=== PATIENT | female | born 1965 | race Caucasian/White ===

== ENCOUNTER → 2016-05-18 | Outpatient (CLI) | payer OTHER ==
--- NOTE | 2016-05-18 16:48 | CR ---
EXAMINATION: Pelvis and right hip HISTORY: Pain COMPARISON: None TECHNIQUE: AP pelvis and 2 views of the right hip FINDINGS: Bone mineralization appears normal. The SI joints are symmetric. There is a lucency throug h the superior margin of the left acetabular rim, possibly disrupted osteophyte. The hip joint space s otherwise appear normal. The iliopectineal lines are intact. IMPRESSION: 1. Grossly unremarkable right hip.
== END ==
LOC: MW.CHORTHO 14:06
PROVIDERS: ATTEND Orthopaedic Surgery
DX: M25.551 Pain in right hip (principal)
CPT/HCPCS: 73502-26-RT; 73502-RT

== ENCOUNTER 2017-06-25 07:26 | Inpatient (IN) | payer OTHER ==
[~2017-06-25 07:26] MED LIST: Acetaminophen 1,000 MG in Premix Bag 1 BAG IV SCH; Famotidine 20 MG/2 ML SDV IVPUSH SCH; Ketorolac 30 MG/ML SDV IVPUSH SCH; Lidocaine 2% 5 ML SDV ONE; Midazolam 1 MG/ML 2 ML SDV ONE; Propofol 200 MG/20 ML SDV ONE; Scopolamine 1.5 MG Transdermal Patch TRDERM SCH; Sodium Chloride 0.9% 20 ML ONE; ceFAZolin 1 GM Vial ONE; fentaNYL 100 MCG/2 ML SDV ONE; oxyCODONE ER 20 MG TAB.ER PO SCH
--- NOTE | 2017-06-25 07:49 | PCM.PREANE ---
Preanesthetic Assessment - Anesthesia/Transfusion/Family Hx Anesthesia History: Prior Anesthesia Without Reaction Family History of Anesthesia Reaction: No Transfusion History: No Prior Transfusion(s) - Review of Systems General: No Symptoms Pulmonary: No Symptoms Cardiovascular: No Symptoms Gastrointestinal: No Symptoms Neurological: No Symptoms Other: Reports: Anxiety - Physical Assessment NPO Status Date: 06/24/17 Height: 1.83 m Weight: 110.223 kg ASA Class: 2 Mental Status: Alert & Oriented x3 Airway Class: Mallampati = 2 Dentition: Reports: Normal Dentition ROM/Head Extension: Full Lungs: Clear to Auscultation, Normal Respiratory Effort Cardiovascular: Regular Rate, Regular Rhythm - Allergies Allergies/Adverse Reactions: Allergies Allergy/AdvReac Type Severity Reaction Status Date / Time No Known Allergies Allergy Verified 06/20/17 14:15 - Acknowledgements Anesthesia Type Planned: Spinal Pt an Appropriate Candidate for the Planned Anesthesia: Yes Alternatives and Risks of Anesthesia Discussed w Pt/Guardian: Yes Pt/Guardian Understands and Agrees with Anesthesia Plan: Yes PreAnesthesia Questionnaire HEENT History: Reports: Allergic Rhinitis Cardiovascular History: Reports: Hypertension Respiratory History: Reports: None Gastrointestinal History: Reports: GERD, Other (See Below) Genitourinary History: Reports: None [employer]ION History: Reports: Musculoskeletal History: Reports: Arthritis Psychiatric History: Reports: Anxiety, Depression Endocrine/Metabolic History: Reports: Obesity/BMI 30+ - Infectious Disease History Infectious Disease History: Reports: Chicken Pox, Mumps - Past Surgical History Head Surgeries/Procedures: Reports: None HEENT Surgical History: Reports: Tonsillectomy Female Surgical History: Reports: Tubal Ligation Musculoskeletal Surgical History: Reports: Arthroscopic Knee - SUBSTANCE USE Smoking Status *Q: Current Every Day Smoker Tobacco Use Within Last Twelve Months: Cigarettes Days Per Week of Alcohol Use: 2 Number of Drinks Per Day: 2 Total Drinks Per Week: 4 Recreational Drug Use History: No Recreational Drug Type: Reports: Marijuana/Hashish Recreational Drug Last Use: 30 years - HOME MEDS Home Medications: Home Meds Escitalopram Oxalate 20 mg PO DAILY 02/10/16 [History] Furosemide 20 mg PO DAILY PRN 02/10/16 [History] Ibuprofen 4 tab PO ASDIRECTED PRN 02/10/16 [History] Acetaminophen [Tylenol] 2 tab PO ASDIRECTED PRN 06/20/17 [History] Famotidine [Pepcid] 1 tab PO ASDIRECTED 06/20/17 [History] - CURRENT (IN HOUSE) MEDS Current Meds: Current Medications Famotidine (Pepcid) 40 mg IVPUSH ONARRIVE GABRIELLA Acetaminophen 1,000 mg/ Premix 100 mls @ 400 mls/hr IV ONARRIVE GABRIELLA Cefazolin Sodium/Dextrose 2 gm (/ Premix) 50 mls @ 100 mls/hr IV ONCALL GABRIELLA Ropivacaine 49.25 ml/Ketorolac Tromethamine 30 mg/Epinephrine HCl 0.5 mg/ Clonidine HCl 80 mcg/ Sodium Chloride 100 mls @ 50 mls/sec INJECT ASDIRECTED GABRIELLA Lactated Ringer's (Ringers, Lactated) 1,000 mls @ 100 mls/hr IV ASDIRECTED GABRIELLA Tranexamic Acid 4,000 mg/ (Sodium Chloride) 140 mls @ 600 mls/hr IV ASDIRECTED GABRIELLA Ketorolac Tromethamine (Toradol) 30 mg IVPUSH ONARRIVE GABRIELLA Oxycodone HCl (Oxycontin) 20 mg PO ONARRIVE GABRIELLA Scopolamine (Transderm-Scop) 1.5 mg TRDERM ONARRIVE GABRIELLA Discontinued Medications Cefazolin Sodium (Ancef) Confirm Administered Dose 2 gm .ROUTE .STK-MED ONE Stop: 06/25/17 07:00 Fentanyl (Sublimaze) Confirm Administered Dose 100 mcg .ROUTE .STK-MED ONE Stop: 06/25/17 07:00 Sodium Chloride (Normal Saline) Confirm Administered Dose 20 mls @ as directed .ROUTE .STK-MED ONE Stop: 06/25/17 07:00 Lidocaine (Xylocaine-Mpf 2%) Confirm Administered Dose 5 ml .ROUTE .STK-MED ONE Stop: 06/25/17 07:00 Midazolam HCl (Versed 1 Mg/Ml) Confirm Administered Dose 2 mg .ROUTE .STK-MED ONE Stop: 06/25/17 07:00 Propofol (Diprivan 20 Ml) Confirm Administered Dose 600 mg .ROUTE .STK-MED ONE Stop: 06/25/17 07:00 Tranexamic Acid (Cyklokapron) Confirm Administered Dose 3,000 mg .ROUTE .STK- MED ONE Stop: 06/25/17 07:26 Tranexamic Acid (Cyklokapron) Confirm Administered Dose 1,000 mg .ROUTE .STK- MED ONE Stop: 06/25/17 07:26
[2017-06-25] MEDS ORDERED: ceFAZolin 2 GM in Premix Bag 1 BAG IV SCH (08:00)
[2017-06-25] MEDS ORDERED: Tranexamic Acid 4,000 MG in Sodium Chloride 0.9% 100 ML IV SCH (08:00)
[2017-06-25] MEDS ORDERED: Ropivacaine 49.25 ML, Ketorolac 30 MG, EPINEPHrine 0.5 MG, cloNIDine 80 MCG in Sodium C... INJECT SCH (08:00)
[2017-06-25] MEDS: Lactated Ringers 1,000 ML IV SCH ×2 (08:09→22:13)
[2017-06-25] MEDS ORDERED: Glycopyrrolate 0.2 MG/ML SDV ONE ×2 (08:55→09:08)
[2017-06-25] MEDS ORDERED: fentaNYL 100 MCG/2 ML SDV IVPUSH PRN (09:24)
[2017-06-25] MEDS ORDERED: ePHEDrine 50 MG/ML SDV ONE (09:25)
[2017-06-25] MEDS ORDERED: Propofol 200 MG/20 ML SDV ONE (09:57)
--- NOTE | 2017-06-25 10:28 | PCM.OPNOTE ---
- General Post-Op/Procedure Note Date of Surgery/Procedure: 06/25/17 Operative Procedure(s): R TKA Post-Op Diagnosis: DJD R knee Anesthesia Technique: Moderate Sedation, Spinal Primary Surgeon: Eri Dubose Client Application Support Specialist: Sheela Perez in mLs: 50 Condition: Good Free Text/Narrative:: tt=44 min #[id number]
[2017-06-25] MEDS ORDERED: Aluminum Hydroxide/Magnesium Hydroxide/Simethicone Susp 30 ML Cup PO PRN (10:32)
[2017-06-25] MEDS ORDERED: diphenhydrAMINE 25 MG Cap PO PRN (10:32)
[2017-06-25] MEDS ORDERED: Bisacodyl 10 MG Supp RECTAL PRN (10:32)
[2017-06-25] MEDS ORDERED: Furosemide 20 MG Tab PO PRN (10:35)
[2017-06-25] MEDS ORDERED: Morphine PF 30 MG/30 ML PCA Vial IV SCH (10:45)
--- NOTE | 2017-06-25 11:29 | PCM.POSTAN ---
POST ANESTHESIA ASSESSMENT - MENTAL STATUS Mental Status: Alert, Oriented - RESPIRATORY Respiratory Status: Respiratory Rate WNL, Airway Patent, O2 Saturation Stable - CARDIOVASCULAR CV Status: Pulse Rate WNL, Blood Pressure Stable - GASTROINTESTINAL GI Status: No Symptoms - POST OP HYDRATION Hydration Status: Adequate & Stable
--- NOTE | 2017-06-25 11:29 | OR ---
SURGEON: Eri Dubose MD DATE OF PROCEDURE: 06/25/2017 PREOPERATIVE DIAGNOSIS: Degenerative joint disease, right knee, tricompartmental. POSTOPERATIVE DIAGNOSIS: Degenerative joint disease, right knee, tricompartmental. PROCEDURES: Right total knee arthroplasty using patient specific instrumentation. SALES CONTRACTOR: Sheela Perez PA-C ANESTHESIA: Spinal with sedation. ESTIMATED BLOOD LOSS: 50 mL. TOURNIQUET TIME: 44 minutes. COMPLICATIONS: None. DVT PROPHYLAXIS: PAS boot and LEIGH hose to the nonoperative leg. IMPLANTS USED: Maureen Persona femoral component size 8 standard (LPS), tibial component size F, 11 mm all-polyethylene articular surface, and 38 mm all-polyethylene patella. INTRAOPERATIVE FINDINGS: Showed severe tricompartmental degenerative changes with grade 4 chondromalacia in all compartments. No significant synovitis was noted. BRIEF HISTORY: Celeste is a 51-year-old female, who has had complaint of progressive bilateral knee pain, right greater than left. She had failed conservative treatment. Due to her lack of response to conservative treatment, I did recommend that she undergo surgical intervention. The risks and goals of the procedure were discussed with the patient and were documented preoperatively. She agreed to proceed. DESCRIPTION OF PROCEDURE: The patient was properly identified and brought to the operating room. The patient was then transferred from the operating room cart and placed on the operating table in a supine position. Anesthesia was administered by the anesthesia staff. After adequate anesthesia was obtained, a well-padded tourniquet was applied to the surgical lower extremity. Solis catheter was placed. The lower extremity was then prepped in a standard fashion using ChloraPrep solution. It was then sterilely draped. A time-out was performed to ensure correct site and procedure. Preoperative antibiotics were given along with one gram of tranexamic acid IV. The surgical site had been marked preoperatively. An Esmarch was used to exsanguinate the right lower extremity and the tourniquet was inflated. An incision was made over the anterior aspect of the knee. The subcutaneous tissues were dissected down to the level of the fascia. A medial parapatellar approach to the knee was made. A portion of the infrapatellar fat pad was then excised. The distal femur was then exposed. The femoral patient-specific cutting guide was then placed. Pins were also placed. The distal femoral cutting block was placed and the distal femoral cut was made. Instrumentation was then removed. Both Whitesides' line and the epicondylar axis were then marked with electrocautery. The 4-in-1 cutting block was placed. This was placed in a slightly externally rotated position, which corresponded well with the previously drawn lines. The cutting guide was then pinned into position. An Irving wing guide was used to check the depth of resection of our anterior condylar cut and it was felt that no notching would occur. The anterior condylar cut was then made followed by the posterior condylar cut. Both the posterior chamfer and anterior chamfer cuts were then made. The cutting block was then removed along with the excess bony remnants. We then turned our attention to the tibia. The anterior cruciate ligament and posterior cruciate ligament were released and a posterior cruciate ligament retractor was placed to allow the tibia to be pulled anteriorly. The tibial patient-specific guide was then placed on the proximal tibia. This fit anatomically. The pins were then placed. The proximal tibia cutting guide was then placed and screwed into position. The proximal tibial resection was then made with care being taken to protect the patellar tendon. The bony resection was then removed. The remainder of the medial and lateral meniscus were then excised. Care was taken to protect the popliteus tendon. The tibia was then sized to the appropriate size. The distal femur was then elevated. The posterior capsule was stripped off the distal femur both medially and laterally. The posterior capsule along with the medial and lateral gutters were then injected with a standard mixture consisting of clonidine, epinephrine, Toradol, and Ropivacaine, unless any allergies were found preoperatively. The femoral component was then placed onto the distal femur in a slightly lateral position. This fit the femur well. A box cut was then made without difficulty. This was then removed. The tibial trial along with the polyethylene liner was then placed. The knee came easily into full extension and was stable to varus and valgus stressing both in full extension and flexion. Any additional releases were performed at this time. We then returned our attention to the patella. The patella was everted and towel clamps were used to hold the patella in position. It was resected to a 15 millimeter thickness. It was then sized to the appropriate size. It was prepared in the usual fashion after placing the predetermined size clamps. This was placed in a slightly superior and medial position. The clamp was then removed. The patellar trial button was placed. The knee was taken through a range of motion using the no-touch technique. The patella tracked centrally. A drop shiva was then placed to check alignment. All instruments were then removed from the knee. The tibial sizer was then placed on the tibia. The tibia was prepared in the usual fashion using the reamer and broach. This was then removed. All bony surfaces were copiously irrigated with Pulsavac solution. They were then suctioned dry. Cement was prepared on the back table in the usual manner. Once it was prepared, the bone ends were again suctioned dry. The tibia was cemented into place first. This was malleted into position. Excess cement was then cleared. The femur was then placed in a similar manner. We placed the polyethylene trial into place and the knee was brought into full extension. An axial load was placed while keeping the knee in full extension. The patella button was also cemented into position and the clamp was used to hold this in place as the cement was allowed to cure. The wound was again copiously irrigated with saline solution using a Pulsavac director corporate communications. Following this 1 g of tranexamic acid was applied to the wound topically. After we had adequate curing of the cement, the knee was again taken through a range of motion. The size of the polyethylene was then determined. The polyethylene trial was then removed. The tibial tray was suctioned to make sure there was no remaining soft tissue or cement. Excess cement was cleared from around the edges of the prosthesis as well. The tourniquet was then deflated. We were able to observe for any excess bleeding and none was noted. Electrocautery was used to maintain hemostasis. An additional gram of tranexamic acid was given IV. The retractors were again placed and the predetermined polyethylene was then placed. This was locked into position without difficulty. The knee was again taken through a range of motion with no change from the prior exam. The fascial layer was closed with Number One Vicryl. The subcutaneous tissues were closed with 2-0 Vicryl. The skin was closed with hayes. Xeroform gauze was placed over the wound and a bulky dressing was applied. The patient was then awakened from anesthesia and transferred back to the operating room cart. They were brought to the recovery room in stable condition. All needle and sponge counts were correct. BENNY / JAY /[id number]
[2017-06-25] MEDS: Ondansetron 4 MG/2 ML SDV IV PRN ×2 (11:31→22:17)
[2017-06-25] MEDS: oxyCODONE 5 MG Tab PO PRN ×2 (13:08→18:05)
[2017-06-25] MEDS: Acetaminophen 1,000 MG in Premix Bag 1 BAG IV SCH ×2 (13:58→20:05)
[2017-06-25] MEDS: Ketorolac 30 MG/ML SDV IVPUSH SCH ×2 (15:06→22:21)
[2017-06-25] MEDS: ceFAZolin 2 GM in Premix Bag 1 BAG IV SCH (15:07)
--- NOTE | 2017-06-25 15:52 | CR ---
EXAMINATION: Right knee HISTORY: TKA COMPARISON: 05/30/2017 TECHNIQUE: AP and lateral views FINDINGS/IMPRESSION: Right total knee hardware is demonstrated in good position and alignment. Postop erative soft tissue changes noted.
[2017-06-25] MEDS: Docusate Sodium 100 MG Cap PO SCH (20:04)
[2017-06-25] MEDS ORDERED: oxyCODONE ER 20 MG TAB.ER PO SCH (21:00)
[2017-06-26] MEDS: ceFAZolin 2 GM in Premix Bag 1 BAG IV SCH (00:31)
[2017-06-26] MEDS: oxyCODONE 5 MG Tab PO PRN ×3 (00:37→07:54)
[2017-06-26] MEDS: Acetaminophen 1,000 MG in Premix Bag 1 BAG IV SCH (01:22)
[2017-06-26] MEDS: Ondansetron 4 MG/2 ML SDV IV PRN ×2 (04:41→12:14)
[2017-06-26] MEDS: Ketorolac 30 MG/ML SDV IVPUSH SCH (04:45)
--- NOTE | 2017-06-26 07:32 | PCM48HPAN ---
Post Anesthesia Note - EVALUATION WITHIN 48HRS OF ANESTHETIC Vital Signs in Normal Range: Yes Patient Participated in Evaluation: Yes Respiratory Function Stable: Yes Airway Patent: Yes Hydration Status Stable: Yes Pain Control Satisfactory: Yes Nausea and Vomiting Control Satisfactory: No (Patietn reports mild persistent nausea. Medication given) Mental Status Recovered: Yes Resp Rate: 16
--- NOTE | 2017-06-26 08:00 | PCM.SURGPN ---
<PreethieronLisetSheela R - Last Filed: 06/26/17 07:54> - General Info Date of Service: 06/26/17 Date of Surgery/Procedure: 06/25/17 POD#: 1 - Review of Systems Gastrointestinal: Reports: Nausea, Vomiting Musculoskeletal: Reports: Leg Pain Systems Review Comment:: pt up to chair for breakfast c/o nausea/vomiting, has not eaten much post-op states she previously hasn't tolerated narcotics well trying clear liquids now pain ok, has some pain has been OOB ambulating with FWW - Patient Data Vitals - Most Recent: Last Vital Signs Temp 97.9 F 06/26/17 03:00 Pulse 70 06/26/17 03:00 Resp 16 06/26/17 07:32 BP 105/67 06/26/17 03:00 Pulse Ox 99 06/26/17 03:00 Weight - Most Recent: 110.223 kg I&O - Last 24 Hours: Intake & Output 06/25/17 06/26/17 06/26/17 22:59 06:59 14:59 Intake Total 1599 750 Output Total 451 2300 Balance 1148 -1550 Lab Results Last 24 Hrs: Laboratory Results - last 24 hr 06/25/17 06/26/17 Range/Units 08:03 06:14 Hgb 10.8 L (12.0-16.0) g/dL Hct 33.3 L (36.0-46.0) % Blood Type O POSITIVE Antibody Screen NEGATIVE Med Orders - Current: Current Medications Al Hydroxide/Mg Hydroxide (Mag-Al Plus) 30 ml PO Q4H PRN PRN Reason: indigestion Last Admin: 06/26/17 01:20 Dose: 30 ml Aspirin (Aspirin) 325 mg PO BID [facility] Bisacodyl (Dulcolax) 10 mg RECTAL DAILY PRN PRN Reason: Constipation Celecoxib (Celebrex) 200 mg PO BID [facility] Diphenhydramine HCl (Benadryl) 25 - 50 mg PO Q6H PRN PRN Reason: Itching Docusate Sodium (Colace) 100 mg PO BID [facility] Last Admin: 06/25/17 20:04 Dose: 100 mg Escitalopram Oxalate (Lexapro) 20 mg PO DAILY [facility] Famotidine (Pepcid) 40 mg IVPUSH ONARRIVE [facility] Last Admin: 06/25/17 07:58 Dose: 40 mg Famotidine (Pepcid) 40 mg PO DAILY [facility] Fentanyl (Sublimaze) 50 mcg IVPUSH Q5M PRN PRN Reason: Pain (severe 7-10) Stop: 06/26/17 09:25 Furosemide (Lasix) 20 mg PO DAILY PRN PRN Reason: Edema Acetaminophen 1,000 mg/ Premix 100 mls @ 400 mls/hr IV ONARRIVE [facility] Last Admin: 06/25/17 07:59 Dose: 400 mls/hr Cefazolin Sodium/Dextrose 2 gm (/ Premix) 50 mls @ 100 mls/hr IV ONCALL [facility] Ropivacaine 49.25 ml/Ketorolac Tromethamine 30 mg/Epinephrine HCl 0.5 mg/ Clonidine HCl 80 mcg/ Sodium Chloride 100 mls @ 50 mls/sec INJECT ASDIRECTED [facility] Lactated Ringer's (Ringers, Lactated) 1,000 mls @ 100 mls/hr IV ASDIRECTED [facility] Last Admin: 06/25/17 22:13 Dose: 100 mls/hr Tranexamic Acid 4,000 mg/ (Sodium Chloride) 140 mls @ 600 mls/hr IV ASDIRECTED [facility] Ketorolac Tromethamine (Toradol) 30 mg IVPUSH ONARRIVE [facility] Last Admin: 06/25/17 07:58 Dose: 30 mg Morphine Sulfate (Morphine Larry Operator 30 Mg In 30 Ml) 30 mg IV ASDIRECTED [facility]; Protocol Stop: 06/26/17 08:00 Last Admin: 06/25/17 10:48 Dose: 30 mg Morphine Sulfate (Morphine) 1 - 3 mg IVPUSH Q3H PRN PRN Reason: Pain Ondansetron HCl (Zofran) 4 mg IV Q6HR PRN PRN Reason: NAUSEA/VOMITING Last Admin: 06/26/17 04:41 Dose: 4 mg Oxycodone HCl (Oxycontin) 20 mg PO ONARRIVE [facility] Last Admin: 06/25/17 07:57 Dose: 20 mg Oxycodone HCl (Oxycodone) 5 - 10 mg PO Q4H PRN PRN Reason: Pain Stop: 06/26/17 08:00 Last Admin: 06/26/17 00:40 Dose: 5 mg Oxycodone HCl (Oxycontin) 20 mg PO Q12HR [facility] Last Admin: 06/25/17 20:27 Dose: 20 mg Oxycodone/Acetaminophen (Percocet 325-5 Mg) 1 - 2 tab PO Q4H PRN PRN Reason: Pain Scopolamine (Transderm-Scop) 1.5 mg TRDERM ONARRIVE [facility] Last Admin: 06/25/17 07:58 Dose: 1.5 mg Discontinued Medications Cefazolin Sodium (Ancef) Confirm Administered Dose 2 gm .ROUTE .STK-MED ONE Stop: 06/25/17 07:00 Ephedrine Sulfate (Ephedrine Sulfate) Confirm Administered Dose 50 mg .ROUTE .STK-MED ONE Stop: 06/25/17 09:26 Fentanyl (Sublimaze) Confirm Administered Dose 100 mcg .ROUTE .STK-MED ONE Stop: 06/25/17 07:00 Glycopyrrolate (Robinul) Confirm Administered Dose 0.2 mg .ROUTE .STK-MED ONE Stop: 06/25/17 08:56 Glycopyrrolate (Robinul) Confirm Administered Dose 0.2 mg .ROUTE .STK-MED ONE Stop: 06/25/17 09:09 Sodium Chloride (Normal Saline) Confirm Administered Dose 20 mls @ as directed .ROUTE .STK-MED ONE Stop: 06/25/17 07:00 Acetaminophen 1,000 mg/ Premix 100 mls @ 400 mls/hr IV Q6H [facility] Stop: 06/26/17 02:14 Last Infusion: 06/26/17 01:37 Dose: Infused Cefazolin Sodium/Dextrose 2 gm (/ Premix) 50 mls @ 100 mls/hr IV Q8H [facility] Stop: 06/26/17 00:29 Last Infusion: 06/26/17 01:05 Dose: Infused Ketorolac Tromethamine (Toradol) 30 mg IVPUSH Q6H [facility] Stop: 06/26/17 05:00 Last Admin: 06/26/17 04:45 Dose: 30 mg Lidocaine (Xylocaine-Mpf 2%) Confirm Administered Dose 5 ml .ROUTE .STK-MED ONE Stop: 06/25/17 07:00 Midazolam HCl (Versed 1 Mg/Ml) Confirm Administered Dose 2 mg .ROUTE .STK-MED ONE Stop: 06/25/17 07:00 Propofol (Diprivan 20 Ml) Confirm Administered Dose 600 mg .ROUTE .STK-MED ONE Stop: 06/25/17 07:00 Propofol (Diprivan 20 Ml) Confirm Administered Dose 200 mg .ROUTE .STK-MED ONE Stop: 06/25/17 09:58 Tranexamic Acid (Cyklokapron) Confirm Administered Dose 3,000 mg .ROUTE .STK- MED ONE Stop: 06/25/17 07:26 Tranexamic Acid (Cyklokapron) Confirm Administered Dose 1,000 mg .ROUTE .STK- MED ONE Stop: 06/25/17 07:26 - Exam Wound/Incisions: Dressing Dry and Intact. No: Drainage, Erythema General: Alert, Oriented Cardiovascular: Regular Rate, Regular Rhythm Extremities: Other (exam RLE - at/ehl/gastroc 5/5, dp 2+, sensation intact distally) Physical Findings Comment:: vss, afeb hgb 10.8 uo 2000+mL - Problem List Review Problem List Initiated/Reviewed/Updated: Yes - My Orders Last 24 Hours: Active Orders 24 hr Category Date Time Status Dressing Change [Wound Care] [RC] Q12H Care 06/25/17 10:31 Active Insert Urinary Catheter [OM.PC] Q24H Care 06/25/17 08:00 Ordered Neurovascular Check [RC] Q2HR Care 06/25/17 10:30 Active Notify Provider Vital Signs [RC] ASDIRECTED Care 06/25/17 10:31 Active RT Incentive Spirometry [RC] ASDIRECTED Care 06/25/17 10:30 Active Vital Signs [RC] Q4H Care 06/25/17 10:30 Active PT Evaluation and Treatment [CONS] Routine Cons 06/25/17 10:30 Active HEMOGLOBIN/HEMATOCRIT,HH [HEME] DAILY Lab 06/27/17 06:00 Ordered HEMOGLOBIN/HEMATOCRIT,HH [HEME] DAILY Lab 06/28/17 06:00 Ordered Acetaminophen/oxyCODONE [Percocet 325-5 MG] Med 06/26/17 08:00 Active 1 - 2 tab PO Q4H PRN Alum Hydrox/Mag Hydrox/Simeth [Mag-Al Plus] Med 06/25/17 10:32 Active 30 ml PO Q4H PRN Aspirin Med 06/26/17 09:00 Active 325 mg PO BID Bisacodyl [Dulcolax] Med 06/25/17 10:32 Active 10 mg RECTAL DAILY PRN Celecoxib [CeleBREX] Med 06/26/17 09:00 Active 200 mg PO BID Docusate Sodium [Colace] Med 06/25/17 21:00 Active 100 mg PO BID Escitalopram [Lexapro] Med 06/26/17 09:00 Active 20 mg PO DAILY Famotidine [Pepcid] Med 06/26/17 09:00 Active 40 mg PO DAILY Furosemide [Lasix] Med 06/25/17 10:35 Active 20 mg PO DAILY PRN Morphine Med 06/26/17 08:00 Active 1 - 3 mg IVPUSH Q3H PRN Morphine PF [Morphine [employer] 30 MG in 30 ML] Med 06/25/17 10:45 Active 30 mg IV ASDIRECTED Ondansetron [Zofran] Med 06/25/17 10:31 Active 4 mg IV Q6HR PRN Ropivacaine [Naropin 0.2%] 49.25 ml Med 06/25/17 08:00 Active Ketorolac [Toradol] 30 mg EPINEPHrine [Adrenalin] 0.5 mg cloNIDine [Duraclon] 80 mcg Sodium Chloride 0.9% [Normal Saline] 48.45 ml INJECT ASDIRECTED Tranexamic Acid [Cyklokapron] 4,000 mg Med 06/25/17 08:00 Active Sodium Chloride 0.9% [Normal Saline] 100 ml IV ASDIRECTED ceFAZolin [Ancef] 2 gm Med 06/25/17 08:00 Active Premix Bag 1 bag IV ONCALL diphenhydrAMINE [Benadryl] Med 06/25/17 10:32 Active 25 - 50 mg PO Q6H PRN fentaNYL [Sublimaze] Med 06/25/17 09:24 Active 50 mcg IVPUSH Q5M PRN oxyCODONE Med 06/25/17 10:32 Active 5 - 10 mg PO Q4H PRN oxyCODONE ER [OxyCONTIN] Med 06/25/17 21:00 Active 20 mg PO Q12HR Ice Therapy [OM.PC] Routine Oth 06/25/17 10:30 Ordered Medication Orders Al Hydroxide/Mg Hydroxide (Mag-Al Plus) 30 ml PO Q4H PRN PRN Reason: indigestion Last Admin: 06/26/17 01:20 Dose: 30 ml Aspirin (Aspirin) 325 mg PO BID [facility] Bisacodyl (Dulcolax) 10 mg RECTAL DAILY PRN PRN Reason: Constipation Celecoxib (Celebrex) 200 mg PO BID [facility] Diphenhydramine HCl (Benadryl) 25 - 50 mg PO Q6H PRN PRN Reason: Itching Docusate Sodium (Colace) 100 mg PO BID [facility] Last Admin: 06/25/17 20:04 Dose: 100 mg Escitalopram Oxalate (Lexapro) 20 mg PO DAILY [facility] Famotidine (Pepcid) 40 mg IVPUSH ONARRIVE [facility] Last Admin: 06/25/17 07:58 Dose: 40 mg Famotidine (Pepcid) 40 mg PO DAILY [facility] Fentanyl (Sublimaze) 50 mcg IVPUSH Q5M PRN PRN Reason: Pain (severe 7-10) Stop: 06/26/17 09:25 Furosemide (Lasix) 20 mg PO DAILY PRN PRN Reason: Edema Acetaminophen 1,000 mg/ Premix 100 mls @ 400 mls/hr IV ONARRIVE [facility] Last Admin: 06/25/17 07:59 Dose: 400 mls/hr Cefazolin Sodium/Dextrose 2 gm (/ Premix) 50 mls @ 100 mls/hr IV ONCALL [facility] Ropivacaine 49.25 ml/Ketorolac Tromethamine 30 mg/Epinephrine HCl 0.5 mg/ Clonidine HCl 80 mcg/ Sodium Chloride 100 mls @ 50 mls/sec INJECT ASDIRECTED [facility] Lactated Ringer's (Ringers, Lactated) 1,000 mls @ 100 mls/hr IV ASDIRECTED [facility] Last Admin: 06/25/17 22:13 Dose: 100 mls/hr Infusion: 06/25/17 18:09 Dose: 100 mls/hr Admin: 06/25/17 08:09 Dose: 100 mls/hr Tranexamic Acid 4,000 mg/ (Sodium Chloride) 140 mls @ 600 mls/hr IV ASDIRECTED [facility] Ketorolac Tromethamine (Toradol) 30 mg IVPUSH ONARRIVE [facility] Last Admin: 06/25/17 07:58 Dose: 30 mg Morphine Sulfate (Morphine Larry Operator 30 Mg In 30 Ml) 30 mg IV ASDIRECTED [facility]; Protocol Stop: 06/26/17 08:00 Last Admin: 06/25/17 10:48 Dose: 30 mg Morphine Sulfate (Morphine) 1 - 3 mg IVPUSH Q3H PRN PRN Reason: Pain Ondansetron HCl (Zofran) 4 mg IV Q6HR PRN PRN Reason: NAUSEA/VOMITING Last Admin: 06/26/17 04:41 Dose: 4 mg Admin: 06/25/17 22:17 Dose: 4 mg Admin: 06/25/17 11:31 Dose: 4 mg Oxycodone HCl (Oxycontin) 20 mg PO ONARRIVE [facility] Last Admin: 06/25/17 07:57 Dose: 20 mg Oxycodone HCl (Oxycodone) 5 - 10 mg PO Q4H PRN PRN Reason: Pain Stop: 06/26/17 08:00 Last Admin: 06/26/17 00:40 Dose: 5 mg Admin: 06/25/17 18:05 Dose: 10 mg Admin: 06/25/17 13:08 Dose: 5 mg Oxycodone HCl (Oxycontin) 20 mg PO Q12HR [facility] Last Admin: 06/25/17 20:27 Dose: 20 mg Oxycodone/Acetaminophen (Percocet 325-5 Mg) 1 - 2 tab PO Q4H PRN PRN Reason: Pain Scopol[facility] Last Admin: 06/25/17 07:58 Dose: 1.5 mg - Assessment Assessment (Free Text/Narrative):: POD#1 R TKA acute posthemorrhagic anemia nausea - Plan Plan (Free Text/Narrative):: DC OxyContin DC [facility] slow LR to 50ml/hr continue IV fluids until nausea/PO intake improves DC [employer] - morphine IV push for breakthrough available DC oxycodone and tylenol - switch to percocet 5/325 PT today ASA 325mg PO BID as DVT prophylaxis if nausea significantly improves, pain is controlled, tolerates PO intake, and does well with PT, may consider d/ch to home this afternoon, but more likely tomorrow d/t nausea and medication management <Eri Dubose R - Last Filed: 06/27/17 08:44> - Patient Data Vitals - Most Recent: Last Vital Signs Temp 99.0 F 06/27/17 04:00 Pulse 68 06/27/17 04:00 Resp 19 06/27/17 04:00 BP 110/64 06/27/17 04:00 Pulse Ox 95 06/27/17 04:00 I&O - Last 24 Hours: Intake & Output 06/26/17 06/27/17 06/27/17 22:59 06:59 14:59 Intake Total 3052 600 Output Total 450 1200 Balance 2602 -600 Lab Results Last 24 Hrs: Laboratory Results - last 24 hr 06/27/17 Range/Units 06:05 Hgb 10.6 L (12.0-16.0) g/dL Hct 33.5 L (36.0-46.0) % Med Orders - Current: Current Medications Hydrocodone Bitart/Acetaminophen ([place] 325-10 Mg) 1 - 2 tab PO Q4H PRN PRN Reason: Pain Last Admin: 06/27/17 06:39 Dose: 2 tab Al Hydroxide/Mg Hydroxide (Mag-Al Plus) 30 ml PO Q4H PRN PRN Reason: indigestion Last Admin: 06/26/17 01:20 Dose: 30 ml Aspirin (Aspirin) 325 mg PO BID [facility] Last Admin: 06/26/17 21:37 Dose: 325 mg Bisacodyl (Dulcolax) 10 mg RECTAL DAILY PRN PRN Reason: Constipation Celecoxib (Celebrex) 200 mg PO BID [facility] Last Admin: 06/26/17 21:37 Dose: 200 mg Diphenhydramine HCl (Benadryl) 25 - 50 mg PO Q6H PRN PRN Reason: Itching Docusate Sodium (Colace) 100 mg PO BID [facility] Last Admin: 06/26/17 21:37 Dose: 100 mg Escitalopram Oxalate (Lexapro) 20 mg PO DAILY [facility] Last Admin: 06/26/17 09:40 Dose: 20 mg Famotidine (Pepcid) 40 mg IVPUSH ONARRIVE [facility] Last Admin: 06/25/17 07:58 Dose: 40 mg Famotidine (Pepcid) 40 mg PO DAILY [facility] Last Admin: 06/26/17 09:43 Dose: 40 mg Furosemide (Lasix) 20 mg PO DAILY PRN PRN Reason: Edema Acetaminophen 1,000 mg/ Premix 100 mls @ 400 mls/hr IV ONARRIVE [facility] Last Admin: 06/25/17 07:59 Dose: 400 mls/hr Cefazolin Sodium/Dextrose 2 gm (/ Premix) 50 mls @ 100 mls/hr IV ONCALL [facility] Ropivacaine 49.25 ml/Ketorolac Tromethamine 30 mg/Epinephrine HCl 0.5 mg/ Clonidine HCl 80 mcg/ Sodium Chloride 100 mls @ 50 mls/sec INJECT ASDIRECTED [facility] Lactated Ringer's (Ringers, Lactated) 1,000 mls @ 50 mls/hr IV ASDIRECTED [facility] Last Admin: 06/26/17 10:04 Dose: 50 mls/hr Tranexamic Acid 4,000 mg/ (Sodium Chloride) 140 mls @ 600 mls/hr IV ASDIRECTED [facility] Ketorolac Tromethamine (Toradol) 30 mg IVPUSH ONARRIVE [facility] Last Admin: 06/25/17 07:58 Dose: 30 mg Morphine Sulfate (Morphine) 1 - 3 mg IVPUSH Q3H PRN PRN Reason: Pain Last Admin: 06/26/17 20:25 Dose: 3 mg Ondansetron HCl (Zofran) 4 mg IV Q6HR PRN PRN Reason: NAUSEA/VOMITING Last Admin: 06/26/17 12:14 Dose: 4 mg Oxycodone HCl (Oxycontin) 20 mg PO ONARRIVE [facility] Last Admin: 06/25/17 07:57 Dose: 20 mg Promethazine HCl (Phenergan) 25 mg IM Q6H PRN PRN Reason: Nausea Last Admin: 06/26/17 16:15 Dose: 25 mg Scopolamine (Transderm-Scop) 1.5 mg TRDERM ONARRIVE [facility] Last Admin: 06/25/17 07:58 Dose: 1.5 mg Discontinued Medications Cefazolin Sodium (Ancef) Confirm Administered Dose 2 gm .ROUTE .STK-MED ONE Stop: 06/25/17 07:00 Ephedrine Sulfate (Ephedrine Sulfate) Confirm Administered Dose 50 mg .ROUTE .STK-MED ONE Stop: 06/25/17 09:26 Fentanyl (Sublimaze) Confirm Administered Dose 100 mcg .ROUTE .STK-MED ONE Stop: 06/25/17 07:00 Fentanyl (Sublimaze) 50 mcg IVPUSH Q5M PRN PRN Reason: Pain (severe 7-10) Stop: 06/26/17 09:25 Glycopyrrolate (Robinul) Confirm Administered Dose 0.2 mg .ROUTE .STK-MED ONE Stop: 06/25/17 08:56 Glycopyrrolate (Robinul) Confirm Administered Dose 0.2 mg .ROUTE .STK-MED ONE Stop: 06/25/17 09:09 Sodium Chloride (Normal Saline) Confirm Administered Dose 20 mls @ as directed .ROUTE .STK-MED ONE Stop: 06/25/17 07:00 Acetaminophen 1,000 mg/ Premix 100 mls @ 400 mls/hr IV Q6H [facility] Stop: 06/26/17 02:14 Last Infusion: 06/26/17 01:37 Dose: Infused Cefazolin Sodium/Dextrose 2 gm (/ Premix) 50 mls @ 100 mls/hr IV Q8H [facility] Stop: 06/26/17 00:29 Last Infusion: 06/26/17 01:05 Dose: Infused Ketorolac Tromethamine (Toradol) 30 mg IVPUSH Q6H [facility] Stop: 06/26/17 05:00 Last Admin: 06/26/17 04:45 Dose: 30 mg Lidocaine (Xylocaine-Mpf 2%) Confirm Administered Dose 5 ml .ROUTE .ST-MED ONE Stop: 06/25/17 07:00 Midazolam HCl (Versed 1 Mg/Ml) Confirm Administered Dose 2 mg .ROUTE .STK-MED ONE Stop: 06/25/17 07:00 Morphine Sulfate (Morphine Larry Operator 30 Mg In 30 Ml) 30 mg IV ASDIRECTED [facility]; Protocol Stop: 06/26/17 08:00 Last Admin: 06/25/17 10:48 Dose: 30 mg Oxycodone HCl (Oxycodone) 5 - 10 mg PO Q4H PRN PRN Reason: Pain Stop: 06/26/17 08:00 Last Admin: 06/26/17 07:54 Dose: 5 mg Oxycodone HCl (Oxycontin) 20 mg PO Q12HR [facility] Last Admin: 06/25/17 20:27 Dose: 20 mg Oxycodone/Acetaminophen (Percocet 325-5 Mg) 1 - 2 tab PO Q4H PRN PRN Reason: Pain Last Admin: 06/26/17 14:02 Dose: 1 tab Propofol (Diprivan 20 Ml) Confirm Administered Dose 600 mg .ROUTE .STK-MED ONE Stop: 06/25/17 07:00 Propofol (Diprivan 20 Ml) Confirm Administered Dose 200 mg .ROUTE .STK-MED ONE Stop: 06/25/17 09:58 Tranexamic Acid (Cyklokapron) Confirm Administered Dose 3,000 mg .ROUTE .STK- MED ONE Stop: 06/25/17 07:26 Tranexamic Acid (Cyklokapron) Confirm Administered Dose 1,000 mg .ROUTE .STK- MED ONE Stop: 06/25/17 07:26 - My Orders Last 24 Hours: Active Orders 24 hr Category Date Time Status Ready for Discharge [RC] PER UNIT ROUTINE Care 06/27/17 08:04 Active Remove [facility] Catheter [Urinary Catheter Removal] [RC] Care 06/26/17 07:57 Active Per Unit Routine HEMOGLOBIN/HEMATOCRIT,HH [HEME] DAILY Lab 06/28/17 06:00 Ordered Acetaminophen/HYDROcodone [[place] 325-10 MG] Med 06/26/17 15:46 Active 1 - 2 tab PO Q4H PRN Aspirin Med 06/26/17 09:00 Active 325 mg PO BID Celecoxib [CeleBREX] Med 06/26/17 09:00 Active 200 mg PO BID Escitalopram [Lexapro] Med 06/26/17 09:00 Active 20 mg PO DAILY Famotidine [Pepcid] Med 06/26/17 09:00 Active 40 mg PO DAILY Morphine Med 06/26/17 08:00 Active 1 - 3 mg IVPUSH Q3H PRN Promethazine [Phenergan] Med 06/26/17 08:00 Active 25 mg IM Q6H PRN Medication Orders Hydrocodone Bitart/Acetaminophen ([place] 325-10 Mg) 1 - 2 tab PO Q4H PRN PRN Reason: Pain Last Admin: 06/27/17 06:39 Dose: 2 tab Admin: 06/27/17 01:34 Dose: 2 tab Admin: 06/26/17 22:04 Dose: 2 tab Admin: 06/26/17 18:14 Dose: 2 tab Al Hydroxide/Mg Hydroxide (Mag-Al Plus) 30 ml PO Q4H PRN PRN Reason: indigestion Last Admin: 06/26/17 01:20 Dose: 30 ml Aspirin (Aspirin) 325 mg PO BID [facility] Last Admin: 06/26/17 21:37 Dose: 325 mg Admin: 06/26/17 09:43 Dose: 325 mg Bisacodyl (Dulcolax) 10 mg RECTAL DAILY PRN PRN Reason: Constipation Celecoxib (Celebrex) 200 mg PO BID [facility] Last Admin: 06/26/17 21:37 Dose: 200 mg Admin: 06/26/17 09:43 Dose: 200 mg Diphenhydramine HCl (Benadryl) 25 - 50 mg PO Q6H PRN PRN Reason: Itching Docusate Sodium (Colace) 100 mg PO BID [facility] Last Admin: 06/26/17 21:37 Dose: 100 mg Admin: 06/26/17 09:43 Dose: 100 mg Admin: 06/25/17 20:04 Dose: 100 mg Escitalopram Oxalate (Lexapro) 20 mg PO DAILY [facility] Last Admin: 06/26/17 09:40 Dose: 20 mg Famotidine (Pepcid) 40 mg IVPUSH ONARRIVE [facility] Last Admin: 06/25/17 07:58 Dose: 40 mg Famotidine (Pepcid) 40 mg PO DAILY [facility] Last Admin: 06/26/17 09:43 Dose: 40 mg Furosemide (Lasix) 20 mg PO DAILY PRN PRN Reason: Edema Acetaminophen 1,000 mg/ Premix 100 mls @ 400 mls/hr IV ONARRIVE [facility] Last Admin: 06/25/17 07:59 Dose: 400 mls/hr Cefazolin Sodium/Dextrose 2 gm (/ Premix) 50 mls @ 100 mls/hr IV ONCALL [facility] Ropivacaine 49.25 ml/Ketorolac Tromethamine 30 mg/Epinephrine HCl 0.5 mg/ Clonidine HCl 80 mcg/ Sodium Chloride 100 mls @ 50 mls/sec INJECT ASDIRECTED [facility] Lactated Ringer's (Ringers, Lactated) 1,000 mls @ 50 mls/hr IV ASDIRECTED [facility] Last Admin: 06/26/17 10:04 Dose: 50 mls/hr Infusion: 06/26/17 08:13 Dose: 50 mls/hr Admin: 06/25/17 22:13 Dose: 100 mls/hr Infusion: 06/25/17 18:09 Dose: 100 mls/hr Admin: 06/25/17 08:09 Dose: 100 mls/hr Tranexamic Acid 4,000 mg/ (Sodium Chloride) 140 mls @ 600 mls/hr IV ASDIRECTED [facility] Ketorolac Tromethamine (Toradol) 30 mg IVPUSH ONARRIVE [facility] Last Admin: 06/25/17 07:58 Dose: 30 mg Morphine Sulfate (Morphine) 1 - 3 mg IVPUSH Q3H PRN PRN Reason: Pain Last Admin: 06/26/17 20:25 Dose: 3 mg Admin: 06/26/17 15:07 Dose: 3 mg Admin: 06/26/17 12:09 Dose: 3 mg Ondansetron HCl (Zofran) 4 mg IV Q6HR PRN PRN Reason: NAUSEA/VOMITING Last Admin: 06/26/17 12:14 Dose: 4 mg Admin: 06/26/17 04:41 Dose: 4 mg Admin: 06/25/17 22:17 Dose: 4 mg Admin: 06/25/17 11:31 Dose: 4 mg Oxycodone HCl (Oxycontin) 20 mg PO ONARRIVE [facility] Last Admin: 06/25/17 07:57 Dose: 20 mg Promethazine HCl (Phenergan) 25 mg IM Q6H PRN PRN Reason: Nausea Last Admin: 06/26/17 16:15 Dose: 25 mg Admin: 06/26/17 09:43 Dose: 25 mg Scopolamine (Transderm-Scop) 1.5 mg TRDERM ONARRIVE [facility] Last Admin: 06/25/17 07:58 Dose: 1.5 mg - Plan Plan (Free Text/Narrative):: Late entry: Patient seen and examined at 1300 on 06/26/17. Agree with above note. Patient still with some nausea. Was oob with PT. No other complaints. Hgb stable. VSS, afeb Dressing dry/intact RLE. NVI. POD #1 1. continue PT and mobilization 2. ASA for DVT prophylaxis 3. change to [place] 4. plan discharge tomorrow
[2017-06-26] MEDS: Escitalopram 10 MG Tab PO SCH (09:40)
[2017-06-26] MEDS: Acetaminophen/oxyCODONE 325-5 MG Tab PO PRN ×2 (09:40→14:02)
[2017-06-26] MEDS: Aspirin 325 MG Tab PO SCH ×2 (09:43→21:37)
[2017-06-26] MEDS: Famotidine 20 MG Tab PO SCH (09:43)
[2017-06-26] MEDS: Promethazine 25 MG/ML SDV IM PRN ×2 (09:43→16:15)
[2017-06-26] MEDS: Docusate Sodium 100 MG Cap PO SCH ×2 (09:43→21:37)
[2017-06-26] MEDS: Celecoxib 100 MG Cap PO SCH ×2 (09:43→21:37)
[2017-06-26] MEDS: Lactated Ringers 1,000 ML IV SCH (10:04)
[2017-06-26] MEDS: Morphine 4 MG/ML Syringe IVPUSH PRN ×3 (12:09→20:25)
[2017-06-26] MEDS: Acetaminophen/HYDROcodone 325-10 MG Tab PO PRN ×2 (18:14→22:04)
[2017-06-27] MEDS: Acetaminophen/HYDROcodone 325-10 MG Tab PO PRN ×2 (01:34→06:39)
--- NOTE | 2017-06-27 08:40 | PCM.SURGPN ---
- General Info Date of Service: 06/27/17 Date of Surgery/Procedure: 06/25/17 POD#: 2 Functional Status: Reports: Pain Controlled, Tolerating Diet, Ambulating, Urinating - Review of Systems General: Reports: No Symptoms Cardiovascular: Reports: No Symptoms Gastrointestinal: Reports: No Symptoms Musculoskeletal: Reports: Leg Pain Systems Review Comment:: pt sitting up in bed, doing well this morning nausea resolved pain controlled with Kalaheo 10/325 would like to go home today - Patient Data Vitals - Most Recent: Last Vital Signs Temp 99.0 F 06/27/17 04:00 Pulse 68 06/27/17 04:00 Resp 19 06/27/17 04:00 BP 110/64 06/27/17 04:00 Pulse Ox 95 06/27/17 04:00 Weight - Most Recent: 110.223 kg I&O - Last 24 Hours: Intake & Output 06/26/17 06/27/17 06/27/17 22:59 06:59 14:59 Intake Total 3052 600 Output Total 450 1200 Balance 2602 -600 Lab Results Last 24 Hrs: Laboratory Results - last 24 hr 06/27/17 Range/Units 06:05 Hgb 10.6 L (12.0-16.0) g/dL Hct 33.5 L (36.0-46.0) % Med Orders - Current: Current Medications Hydrocodone Bitart/Acetaminophen (Kalaheo 325-10 Mg) 1 - 2 tab PO Q4H PRN PRN Reason: Pain Last Admin: 06/27/17 06:39 Dose: 2 tab Al Hydroxide/Mg Hydroxide (Mag-Al Plus) 30 ml PO Q4H PRN PRN Reason: indigestion Last Admin: 06/26/17 01:20 Dose: 30 ml Aspirin (Aspirin) 325 mg PO BID [facility] Last Admin: 06/26/17 21:37 Dose: 325 mg Bisacodyl (Dulcolax) 10 mg RECTAL DAILY PRN PRN Reason: Constipation Celecoxib (Celebrex) 200 mg PO BID [facility] Last Admin: 06/26/17 21:37 Dose: 200 mg Diphenhydramine HCl (Benadryl) 25 - 50 mg PO Q6H PRN PRN Reason: Itching Docusate Sodium (Colace) 100 mg PO BID [facility] Last Admin: 06/26/17 21:37 Dose: 100 mg Escitalopram Oxalate (Lexapro) 20 mg PO DAILY [facility] Last Admin: 06/26/17 09:40 Dose: 20 mg Famotidine (Pepcid) 40 mg IVPUSH ONARRIVE [facility] Last Admin: 06/25/17 07:58 Dose: 40 mg Famotidine (Pepcid) 40 mg PO DAILY [facility] Last Admin: 06/26/17 09:43 Dose: 40 mg Furosemide (Lasix) 20 mg PO DAILY PRN PRN Reason: Edema Acetaminophen 1,000 mg/ Premix 100 mls @ 400 mls/hr IV ONARRIVE [facility] Last Admin: 06/25/17 07:59 Dose: 400 mls/hr Cefazolin Sodium/Dextrose 2 gm (/ Premix) 50 mls @ 100 mls/hr IV ONCALL [facility] Ropivacaine 49.25 ml/Ketorolac Tromethamine 30 mg/Epinephrine HCl 0.5 mg/ Clonidine HCl 80 mcg/ Sodium Chloride 100 mls @ 50 mls/sec INJECT ASDIRECTED [facility] Lactated Ringer's (Ringers, Lactated) 1,000 mls @ 50 mls/hr IV ASDIRECTED [facility] Last Admin: 06/26/17 10:04 Dose: 50 mls/hr Tranexamic Acid 4,000 mg/ (Sodium Chloride) 140 mls @ 600 mls/hr IV ASDIRECTED [facility] Ketorolac Tromethamine (Toradol) 30 mg IVPUSH ONARRIVE [facility] Last Admin: 06/25/17 07:58 Dose: 30 mg Morphine Sulfate (Morphine) 1 - 3 mg IVPUSH Q3H PRN PRN Reason: Pain Last Admin: 06/26/17 20:25 Dose: 3 mg Ondansetron HCl (Zofran) 4 mg IV Q6HR PRN PRN Reason: NAUSEA/VOMITING Last Admin: 06/26/17 12:14 Dose: 4 mg Oxycodone HCl (Oxycontin) 20 mg PO ONARRIVE [facility] Last Admin: 06/25/17 07:57 Dose: 20 mg Promethazine HCl (Phenergan) 25 mg IM Q6H PRN PRN Reason: Nausea Last Admin: 06/26/17 16:15 Dose: 25 mg Scopolamine (Transderm-Scop) 1.5 mg TRDERM ONARRIVE [facility] Last Admin: 06/25/17 07:58 Dose: 1.5 mg Discontinued Medications Cefazolin Sodium (Ancef) Confirm Administered Dose 2 gm .ROUTE .STK-MED ONE Stop: 06/25/17 07:00 Ephedrine Sulfate (Ephedrine Sulfate) Confirm Administered Dose 50 mg .ROUTE .STK-MED ONE Stop: 06/25/17 09:26 Fentanyl (Sublimaze) Confirm Administered Dose 100 mcg .ROUTE .STK-MED ONE Stop: 06/25/17 07:00 Fentanyl (Sublimaze) 50 mcg IVPUSH Q5M PRN PRN Reason: Pain (severe 7-10) Stop: 06/26/17 09:25 Glycopyrrolate (Robinul) Confirm Administered Dose 0.2 mg .ROUTE .STK-MED ONE Stop: 06/25/17 08:56 Glycopyrrolate (Robinul) Confirm Administered Dose 0.2 mg .ROUTE .STK-MED ONE Stop: 06/25/17 09:09 Sodium Chloride (Normal Saline) Confirm Administered Dose 20 mls @ as directed .ROUTE .STK-MED ONE Stop: 06/25/17 07:00 Acetaminophen 1,000 mg/ Premix 100 mls @ 400 mls/hr IV Q6H [facility] Stop: 06/26/17 02:14 Last Infusion: 06/26/17 01:37 Dose: Infused Cefazolin Sodium/Dextrose 2 gm (/ Premix) 50 mls @ 100 mls/hr IV Q8H [facility] Stop: 06/26/17 00:29 Last Infusion: 06/26/17 01:05 Dose: Infused Ketorolac Tromethamine (Toradol) 30 mg IVPUSH Q6H [facility] Stop: 06/26/17 05:00 Last Admin: 06/26/17 04:45 Dose: 30 mg Lidocaine (Xylocaine-Mpf 2%) Confirm Administered Dose 5 ml .ROUTE .STK-MED ONE Stop: 06/25/17 07:00 Midazolam HCl (Versed 1 Mg/Ml) Confirm Administered Dose 2 mg .ROUTE .STK-MED ONE Stop: 06/25/17 07:00 Morphine Sulfate (Morphine [employer] 30 Mg In 30 Ml) 30 mg IV ASDIRECTED [facility]; Protocol Stop: 06/26/17 08:00 Last Admin: 06/25/17 10:48 Dose: 30 mg Oxycodone HCl (Oxycodone) 5 - 10 mg PO Q4H PRN PRN Reason: Pain Stop: 06/26/17 08:00 Last Admin: 06/26/17 07:54 Dose: 5 mg Oxycodone HCl (Oxycontin) 20 mg PO Q12HR [facility] Last Admin: 06/25/17 20:27 Dose: 20 mg Oxycodone/Acetaminophen (Percocet 325-5 Mg) 1 - 2 tab PO Q4H PRN PRN Reason: Pain Last Admin: 06/26/17 14:02 Dose: 1 tab Propofol (Diprivan 20 Ml) Confirm Administered Dose 600 mg .ROUTE .STK-MED ONE Stop: 06/25/17 07:00 Propofol (Diprivan 20 Ml) Confirm Administered Dose 200 mg .ROUTE .STK-MED ONE Stop: 06/25/17 09:58 Tranexamic Acid (Cyklokapron) Confirm Administered Dose 3,000 mg .ROUTE .STK- MED ONE Stop: 06/25/17 07:26 Tranexamic Acid (Cyklokapron) Confirm Administered Dose 1,000 mg .ROUTE .STK- MED ONE Stop: 06/25/17 07:26 - Exam Wound/Incisions: Dressing Dry and Intact General: Alert, Oriented Cardiovascular: Regular Rate, Regular Rhythm Extremities: Other (exam RLE - at/ehl/gastroc 5/5, dp 2+, sensation intact distally) Physical Findings Comment:: vss, afeb hgb 10.6 - Problem List Review Problem List Initiated/Reviewed/Updated: Yes - My Orders Last 24 Hours: Active Orders 24 hr Category Date Time Status Ready for Discharge [RC] PER UNIT ROUTINE Care 06/27/17 08:04 Active Remove [employer]is Catheter [Urinary Catheter Removal] [RC] Care 06/26/17 07:57 Active Per Unit Routine HEMOGLOBIN/HEMATOCRIT,HH [HEME] DAILY Lab 06/28/17 06:00 Ordered Acetaminophen/HYDROcodone [Kalaheo 325-10 MG] Med 06/26/17 15:46 Active 1 - 2 tab PO Q4H PRN Aspirin Med 06/26/17 09:00 Active 325 mg PO BID Celecoxib [CeleBREX] Med 06/26/17 09:00 Active 200 mg PO BID Escitalopram [Lexapro] Med 06/26/17 09:00 Active 20 mg PO DAILY Famotidine [Pepcid] Med 06/26/17 09:00 Active 40 mg PO DAILY Morphine Med 06/26/17 08:00 Active 1 - 3 mg IVPUSH Q3H PRN Promethazine [Phenergan] Med 06/26/17 08:00 Active 25 mg IM Q6H PRN Medication Orders Hydrocodone Bitart/Acetaminophen (Kalaheo 325-10 Mg) 1 - 2 tab PO Q4H PRN PRN Reason: Pain Last Admin: 06/27/17 06:39 Dose: 2 tab Admin: 06/27/17 01:34 Dose: 2 tab Admin: 06/26/17 22:04 Dose: 2 tab Admin: 06/26/17 18:14 Dose: 2 tab Al Hydroxide/Mg Hydroxide (Mag-Al Plus) 30 ml PO Q4H PRN PRN Reason: indigestion Last Admin: 06/26/17 01:20 Dose: 30 ml Aspirin (Aspirin) 325 mg PO BID [facility] Last Admin: 06/26/17 21:37 Dose: 325 mg Admin: 06/26/17 09:43 Dose: 325 mg Bisacodyl (Dulcolax) 10 mg RECTAL DAILY PRN PRN Reason: Constipation Celecoxib (Celebrex) 200 mg PO BID [facility] Last Admin: 06/26/17 21:37 Dose: 200 mg Admin: 06/26/17 09:43 Dose: 200 mg Diphenhydramine HCl (Benadryl) 25 - 50 mg PO Q6H PRN PRN Reason: Itching Docusate Sodium (Colace) 100 mg PO BID [facility] Last Admin: 06/26/17 21:37 Dose: 100 mg Admin: 06/26/17 09:43 Dose: 100 mg Admin: 06/25/17 20:04 Dose: 100 mg Escitalopram Oxalate (Lexapro) 20 mg PO DAILY [facility] Last Admin: 06/26/17 09:40 Dose: 20 mg Famotidine (Pepcid) 40 mg IVPUSH ONARRIVE [facility] Last Admin: 06/25/17 07:58 Dose: 40 mg Famotidine (Pepcid) 40 mg PO DAILY [facility] Last Admin: 06/26/17 09:43 Dose: 40 mg Furosemide (Lasix) 20 mg PO DAILY PRN PRN Reason: Edema Acetaminophen 1,000 mg/ Premix 100 mls @ 400 mls/hr IV ONARRIVE [facility] Last Admin: 06/25/17 07:59 Dose: 400 mls/hr Cefazolin Sodium/Dextrose 2 gm (/ Premix) 50 mls @ 100 mls/hr IV ONCALL [facility] Ropivacaine 49.25 ml/Ketorolac Tromethamine 30 mg/Epinephrine HCl 0.5 mg/ Clonidine HCl 80 mcg/ Sodium Chloride 100 mls @ 50 mls/sec INJECT ASDIRECTED [facility] Lactated Ringer's (Ringers, Lactated) 1,000 mls @ 50 mls/hr IV ASDIRECTED [facility] Last Admin: 06/26/17 10:04 Dose: 50 mls/hr Infusion: 06/26/17 08:13 Dose: 50 mls/hr Admin: 06/25/17 22:13 Dose: 100 mls/hr Infusion: 06/25/17 18:09 Dose: 100 mls/hr Admin: 06/25/17 08:09 Dose: 100 mls/hr Tranexamic Acid 4,000 mg/ (Sodium Chloride) 140 mls @ 600 mls/hr IV ASDIRECTED [facility] Ketorolac Tromethamine (Toradol) 30 mg IVPUSH ONARRIVE [facility] Last Admin: 06/25/17 07:58 Dose: 30 mg Morphine Sulfate (Morphine) 1 - 3 mg IVPUSH Q3H PRN PRN Reason: Pain Last Admin: 06/26/17 20:25 Dose: 3 mg Admin: 06/26/17 15:07 Dose: 3 mg Admin: 06/26/17 12:09 Dose: 3 mg Ondansetron HCl (Zofran) 4 mg IV Q6HR PRN PRN Reason: NAUSEA/VOMITING Last Admin: 06/26/17 12:14 Dose: 4 mg Admin: 06/26/17 04:41 Dose: 4 mg Admin: 06/25/17 22:17 Dose: 4 mg Admin: 06/25/17 11:31 Dose: 4 mg Oxycodone HCl (Oxycontin) 20 mg PO ONARRIVE [facility] Last Admin: 06/25/17 07:57 Dose: 20 mg Promethazine HCl (Phenergan) 25 mg IM Q6H PRN PRN Reason: Nausea Last Admin: 06/26/17 16:15 Dose: 25 mg Admin: 06/26/17 09:43 Dose: 25 mg Scopolamine (Transderm-Scop) 1.5 mg JUDE ONARRIVE [facility] Last Admin: 06/25/17 07:58 Dose: 1.5 mg - Assessment Assessment (Free Text/Narrative):: POD#2 R TKA acute posthemorrhagic anemia - Plan Plan (Free Text/Narrative):: d/ch to home today dressing changed yesterday d/ch meds written pt has FWW d/ch summary #[id number]
[2017-06-27] MEDS: Aspirin 325 MG Tab PO SCH (08:42)
[2017-06-27] MEDS: Escitalopram 10 MG Tab PO SCH (08:42)
[2017-06-27] MEDS: Celecoxib 100 MG Cap PO SCH (08:42)
[2017-06-27] MEDS: Famotidine 20 MG Tab PO SCH (08:43)
[2017-06-27] MEDS: Docusate Sodium 100 MG Cap PO SCH (08:43)
[2017-06-27 10:43] VITALS: BP 112/62
--- NOTE | 2017-06-28 09:02 | DISCH ---
DATE OF DISCHARGE: 06/27/2017 PRIMARY CARE PHYSICIAN: EDITH BOOKER MD ADMITTING DIAGNOSES: Degenerative joint degenerative joint disease, right knee, tricompartmental. OTHER MEDICAL DIAGNOSES: 1. Anxiety. 2. GERD. DISCHARGE DIAGNOSES: 1. Degenerative joint degenerative joint disease, right knee, tricompartmental. 2. Anxiety. 3. GERD. 4. Acute post hemorrhagic anemia. BRIEF HISTORY: Celeste is a 51-year-old female, who has had progressive complaints of right knee pain. She has tried and failed conservative treatment. At that time, surgical treatment was recommended. On June 25, 2017, the patient underwent a right total knee arthroplasty using patient-specific instrumentation done by Dr. Eri Dubose. This was done under spinal anesthesia with sedation. Estimated blood loss was 50 mL. Tourniquet time was 44 minutes. There were no known complications. Upon completion of the procedure, the patient was transferred to the PACU and subsequently to [facility] for postoperative care. HOSPITAL COURSE: Postoperatively, the patient did well. She received two doses of antibiotics post-operatively for a total of 24 hours of antibiotic coverage. Her pain was controlled with a combination of oral and IV pain medications. She did have nausea which improved with Zofran and changing her narcotic. Physical therapy followed her through her hospital stay. Aspirin 325 mg by mouth twice daily was started on postoperative day #1 as DVT prophylaxis. Her vital signs have been stable. She has been afebrile. Her hemoglobin on the morning of June 27 was 10.6. She feels comfortable with discharge to home today. DISCHARGE MEDICATIONS: 1. Boles 10/325. 2. Colace 100 mg. 3. Celebrex 200 mg. 4. Aspirin 325 mg. 5. Zofran ODT 4 mg. DISCHARGE INSTRUCTIONS: 1. Follow up in clinic 10-14 days from the date of procedure. This appointment has been made for the patient. 2. Outpatient Physical Therapy 2-3 times per week for 4-6 weeks. 3. Polar Care to the right knee as needed. 4. LEIGH hose, on the morning, off in the evening. 5. No driving for minimum of 4-6 weeks after right total knee arthroplasty. 6. She is to change her dressing on Friday, June 30, 2017. She should place a new dressing and leave that in place until followup. For complete medication reconciliation and discharge instructions, please refer back to the patient's EHR. Should she have questions or concerns prior to followup, she has been advised to return to clinic or call. REMI THOMPSON /[id number] MTDD
== END 2017-06-27 09:10 | disposition home or self-care (01) | DRG 470 ==
LOC: MW.SDS 07:26 → MW.MS 11:15
PROVIDERS: ADMIT Orthopaedic Surgery; ATTEND Orthopaedic Surgery
PROC: 0SRC0J9 Replacement of Right Knee Joint with Synthetic Substitute, Cemented, Open Approach (ICD-10-PCS; principal; 2017-06-25)
DX: M17.11 Unilateral primary osteoarthritis, right knee (principal); M94.261 Chondromalacia, right knee; I10 Essential (primary) hypertension; K21.9 Gastro-esophageal reflux disease without esophagitis; F41.8 Other specified anxiety disorders; F17.200 Nicotine dependence, unspecified, uncomplicated; Z79.899 Other long term (current) drug therapy
CPT/HCPCS: 01402; 36415; 73560-26-RT; 73560-RT; 81025; 85014; 85018; 86850; 86900; 86901; 88304; 88311; 97110-GP; 97161-GP; 97530-GP; A9270-GY; C1713; C1776; J0171; J0690; J0735; J1885; J2250; J2270; J2274; J2405; J2550; J2704; J2795; J3010; J7050; J7120

== ENCOUNTER 2018-03-11 06:16 | Inpatient (IN) | payer OTHER ==
[~2018-03-11 06:16] MED LIST changes: -Acetaminophen 1,000 MG in Premix Bag 1 BAG IV SCH; -Lidocaine 2% 5 ML SDV ONE; -Midazolam 1 MG/ML 2 ML SDV ONE; -Propofol 200 MG/20 ML SDV ONE; +Ropivacaine 49.25 ML, Ketorolac 30 MG, EPINEPHrine 0.5 MG, cloNIDine 80 MCG in Sodium C... INJECT SCH; -Sodium Chloride 0.9% 20 ML ONE; -ceFAZolin 1 GM Vial ONE; -fentaNYL 100 MCG/2 ML SDV ONE; -oxyCODONE ER 20 MG TAB.ER PO SCH
[2018-03-11] MEDS: Lactated Ringers 1,000 ML IV SCH ×3 (07:00→22:48)
[2018-03-11] MEDS: Acetaminophen 1,000 MG in Premix Bag 1 BAG IV SCH ×4 (07:07→20:10)
[2018-03-11] MEDS ORDERED: Ondansetron 4 MG/2 ML SDV ONE (07:16)
[2018-03-11] MEDS ORDERED: Midazolam 1 MG/ML 2 ML SDV ONE (07:16)
[2018-03-11] MEDS ORDERED: Lidocaine 2% 5 ML SDV ONE (07:16)
[2018-03-11] MEDS ORDERED: fentaNYL 250 MCG/5 ML SDV ONE ×2 (07:16→08:52)
[2018-03-11] MEDS ORDERED: Propofol 200 MG/20 ML SDV ONE (07:16)
[2018-03-11] MEDS ORDERED: Rocuronium 10 MG/ML 10 ML Syringe ONE (07:16)
--- NOTE | 2018-03-11 07:24 | PCM.PREANE ---
Preanesthetic Assessment - Anesthesia/Transfusion/Family Hx Anesthesia History: Prior Anesthesia Without Reaction Family History of Anesthesia Reaction: No Transfusion History: No Prior Transfusion(s) - Review of Systems General: No Symptoms Pulmonary: No Symptoms Cardiovascular: No Symptoms Gastrointestinal: No Symptoms Neurological: No Symptoms Other: Reports: None - Physical Assessment NPO Status Date: 03/10/18 Height: 1.83 m Weight: 113.398 kg ASA Class: 2 Mental Status: Alert & Oriented x3 Airway Class: Mallampati = 1 Dentition: Reports: Normal Dentition ROM/Head Extension: Full Lungs: Clear to Auscultation, Normal Respiratory Effort Cardiovascular: Regular Rate, Regular Rhythm - Allergies Allergies/Adverse Reactions: Allergies Allergy/AdvReac Type Severity Reaction Status Date / Time No Known Allergies Allergy Verified 03/06/18 08:20 - Blood Blood Available: No - Acknowledgements Anesthesia Type Planned: General Anesthesia Pt an Appropriate Candidate for the Planned Anesthesia: Yes Alternatives and Risks of Anesthesia Discussed w Pt/Guardian: Yes Pt/Guardian Understands and Agrees with Anesthesia Plan: Yes Additional Comments: PMH: smoker, anx/dep, gerd (no PPAs for 2 days, B<I=35 (denies hx of htn, and hx of asthma is remote) PLAN: GA with paralysis per Dr Dubose- for manip of knee PreAnesthesia Questionnaire HEENT History: Reports: Allergic Rhinitis Cardiovascular History: Reports: Hypertension Respiratory History: Reports: None Gastrointestinal History: Reports: GERD, Other (See Below) Genitourinary History: Reports: Renal Calculus INSURANCE INSPECTOR History: Reports: Musculoskeletal History: Reports: Osteoarthritis, RA Neurological History: Reports: None Psychiatric History: Reports: Anxiety, Depression Endocrine/Metabolic History: Reports: Obesity/BMI 30+ Hematologic History: Reports: None Immunologic History: Reports: None Oncologic (Cancer) History: Reports: None Dermatologic History: Reports: None - Infectious Disease History Infectious Disease History: Reports: Chicken Pox, Mumps - Past Surgical History Head Surgeries/Procedures: Reports: None HEENT Surgical History: Reports: Tonsillectomy Female Surgical History: Reports: Tubal Ligation Musculoskeletal Surgical History: Reports: Arthroscopic Knee, Knee Replacement Other Musculoskeletal Surgeries/Procedures:: hx rt TKA - SUBSTANCE USE Smoking Status *Q: Current Every Day Smoker Tobacco Use Within Last Twelve Months: Cigarettes Recreational Drug Use History: No - HOME MEDS Home Medications: Home Meds Escitalopram Oxalate 20 mg PO DAILY 02/10/16 [History] Furosemide 20 mg PO DAILY PRN 02/10/16 [History] Acetaminophen [Tylenol] 2 tab PO ASDIRECTED PRN 03/06/18 [History] Ibuprofen [Motrin] 2 tab PO ASDIRECTED PRN 03/06/18 [History] Omeprazole 20 mg PO DAILY 03/06/18 [History] - CURRENT (IN HOUSE) MEDS Current Meds: Current Medications Famotidine (Pepcid) 40 mg IVPUSH [facility] Last Admin: 03/11/18 07:02 Dose: 40 mg Acetaminophen 1,000 mg/ Premix 100 mls @ 400 mls/hr IV [facility] Last Admin: 03/11/18 07:07 Dose: 400 mls/hr Cefazolin Sodium/Dextrose 2 gm (/ Premix) 50 mls @ 100 mls/hr IV ONCALL [facility] Ropivacaine 49.25 ml/Ketorolac Tromethamine 30 mg/Epinephrine HCl 0.5 mg/ Clonidine HCl 80 mcg/ Sodium Chloride 100 mls @ 50 mls/sec INJECT [facility] Lactated Ringer's (Ringers, Lactated) 1,000 mls @ 100 mls/hr IV [facility] Last Admin: 03/11/18 07:00 Dose: 100 mls/hr Tranexamic Acid 4,000 mg/ (Sodium Chloride) 140 mls @ 600 mls/hr IV ASDIRECTED ONE Stop: 03/11/18 08:13 Ketorolac Tromethamine (Toradol) 30 mg IVPUSH [facility] Last Admin: 03/11/18 07:04 Dose: 30 mg Scopolamine (Transderm-Scop) 1.5 mg TRDERM [facility] Last Admin: 03/11/18 06:59 Dose: 1.5 mg Discontinued Medications Fentanyl (Sublimaze) Confirm Administered Dose 250 mcg .ROUTE .STK-MED ONE Stop: 03/11/18 07:17 Lidocaine (Xylocaine-Mpf 2%) Confirm Administered Dose 5 ml .ROUTE .STK-MED ONE Stop: 03/11/18 07:17 Midazolam HCl (Versed 1 Mg/Ml) Confirm Administered Dose 2 mg .ROUTE .STK-MED ONE Stop: 03/11/18 07:17 Ondansetron HCl (Zofran) Confirm Administered Dose 4 mg .ROUTE .STK-MED ONE Stop: 03/11/18 07:17 Propofol (Diprivan 20 Ml) Confirm Administered Dose 200 mg .ROUTE .STK-MED ONE Stop: 03/11/18 07:17 Rocuronium [place] (Zemuron) Confirm Administered Dose 100 mg .ROUTE .STK-MED ONE Stop: 03/11/18 07:17
[2018-03-11] MEDS ORDERED: ceFAZolin/Dextrose,Iso-Osmotic 2 GM/50 ML Duplex Bag IV ONE (07:30)
[2018-03-11] MEDS ORDERED: ceFAZolin 2 GM in Premix Bag 1 BAG IV SCH (08:00)
[2018-03-11] MEDS ORDERED: Tranexamic Acid 4,000 MG in Sodium Chloride 0.9% 100 ML IV ONE (08:00)
[2018-03-11] MEDS ORDERED: HYDROmorphone 2 MG/ML Syringe ONE (08:22)
[2018-03-11] MEDS ORDERED: Dexamethasone 4 MG/ML 5 ML MDV ONE (08:23)
[2018-03-11] MEDS ORDERED: fentaNYL 100 MCG/2 ML SDV IVPUSH PRN (08:49)
[2018-03-11] MEDS ORDERED: Morphine PF 30 MG/30 ML PCA Vial IV PRN (09:40)
[2018-03-11] MEDS ORDERED: Bisacodyl 10 MG Supp RECTAL PRN (09:40)
[2018-03-11] MEDS ORDERED: diphenhydrAMINE 25 MG Cap PO PRN (09:40)
[2018-03-11] MEDS ORDERED: Sodium Chloride 0.9% 2.5 ML Syringe FLUSH PRN (09:40)
[2018-03-11] MEDS ORDERED: Sodium Chloride 0.9% 10 ML Syringe FLUSH PRN (09:40)
[2018-03-11] MEDS ORDERED: Aluminum Hydroxide/Magnesium Hydroxide/Simethicone Susp 30 ML Cup PO PRN (09:40)
[2018-03-11] MEDS ORDERED: Docusate Sodium 100 MG Cap PO PRN (09:40)
--- NOTE | 2018-03-11 10:08 | PCM.OPNOTE ---
- General Post-Op/Procedure Note Date of Surgery/Procedure: 03/11/18 Operative Procedure(s): L TKA and R TKA manipulation Post-Op Diagnosis: DJD L knee, arthrofibrosis R TKA Anesthesia Technique: General ET Tube Primary Surgeon: Eri Dubose Cytopathology Technologist: Ely Jessica Cytopathology Technologist: Sheela Perez in mLs: 50 Condition: Good Free Text/Narrative:: tt=57 min #[id number]
[2018-03-11] MEDS: HYDROmorphone 2 MG/ML Syringe IVPUSH PRN ×4 (10:18→10:39)
[2018-03-11] MEDS ORDERED: ceFAZolin 1 GM Vial ONE (10:33)
--- NOTE | 2018-03-11 10:50 | PCM.POSTAN ---
POST ANESTHESIA ASSESSMENT - MENTAL STATUS Mental Status: Alert, Oriented - RESPIRATORY Respiratory Status: Respiratory Rate WNL - CARDIOVASCULAR CV Status: Pulse Rate WNL - GASTROINTESTINAL GI Status: No Symptoms - PAIN Pain Score: 4 - POST OP HYDRATION Hydration Status: Adequate & Stable - OBSERVATIONS Free Text/Narrative:: The patient tolerated the procedure well. There were no apparent anesthetic complications at this time. Discharge per criteria.
--- NOTE | 2018-03-11 12:10 | OR ---
SURGEON: Eri Dubose MD DATE OF PROCEDURE: 03/11/2018 PREOPERATIVE DIAGNOSES: 1. Degenerative joint disease, left knee, tricompartmental. 2. Arthrofibrosis, right knee, status post right total knee arthroplasty. POSTOPERATIVE DIAGNOSES: 1. Degenerative joint disease, left knee, tricompartmental. 2. Arthrofibrosis, right knee, status post right total knee arthroplasty. PROCEDURES: 1. Left total knee arthroplasty using patient specific instrumentation. 2. Right total knee arthroplasty manipulation. ASSISTANTS: RODRIGO White and Sheela Perez PA-C. ANESTHESIA: General. ESTIMATED BLOOD LOSS: 50 mL. TOURNIQUET TIME: 57 minutes. COMPLICATIONS: None. DVT PROPHYLAXIS: PAS boot to the unaffected lower extremity. IMPLANTS USED: Maureen Persona femoral component size 8 standard (LPS), tibial component size E, 10 mm all-polyethylene articular surface, and 38 mm all polyethylene patella. INTRAOPERATIVE FINDINGS: Showed tricompartmental degenerative changes with grade 4 chondromalacia. Osteophyte formation was also noted. No significant synovitis was found. DESCRIPTION OF PROCEDURE: The patient was properly identified and brought to the operating room. She was transferred from the OR cart and placed on the operating table in supine position. General anesthesia with paralytic was administered. After adequate anesthesia was obtained, a time-out was performed to ensure correct site and procedure. Preoperative antibiotics were given. The surgical site was not marked preoperatively due to the bilateral nature of the procedure. The right hip and knee were then flexed. She had approximately 100 degrees of passive knee flexion. Gentle downward pressure was applied to the tibia. Scar adhesions were palpated within the knee as they were released. I was able to get her to 120 degrees of knee flexion on the table. This was documented with intraoperative pictures, which will be shown to the patient postoperatively. Solis catheter was placed. The left lower extremity was then prepped in standard fashion using ChloraPrep solution. It was then sterilely draped. A time-out was performed to ensure correct site and procedure. Preoperative antibiotics were given along with one gram of tranexamic acid IV. The surgical site had been marked preoperatively. An Esmarch was used to exsanguinate the right lower extremity and the tourniquet was inflated. An incision was made over the anterior aspect of the knee. The subcutaneous tissues were dissected down to the level of the fascia. A medial parapatellar approach to the knee was made. A portion of the infrapatellar fat pad was then excised. The distal femur was then exposed. The femoral patient-specific cutting guide was then placed. Pins were also placed. The distal femoral cutting block was placed and the distal femoral cut was made. Instrumentation was then removed. Both Whitesides' line and the epicondylar axis were then marked with electrocautery. The 4-in-1 cutting block was placed. This was placed in a slightly externally rotated position, which corresponded well with the previously drawn lines. The cutting guide was then pinned into position. An Irving wing guide was used to check the depth of resection of our anterior condylar cut and it was felt that no notching would occur. The anterior condylar cut was then made followed by the posterior condylar cut. Both the posterior chamfer and anterior chamfer cuts were then made. The cutting block was then removed along with the excess bony remnants. We then turned our attention to the tibia. The anterior cruciate ligament and posterior cruciate ligament were released and a posterior cruciate ligament retractor was placed to allow the tibia to be pulled anteriorly. The tibial patient-specific guide was then placed on the proximal tibia. This fit anatomically. The pins were then placed. The proximal tibia cutting guide was then placed and screwed into position. The proximal tibial resection was then made with care being taken to protect the patellar tendon. The bony resection was then removed. The remainder of the medial and lateral meniscus were then excised. Care was taken to protect the popliteus tendon. The tibia was then sized to the appropriate size. The distal femur was then elevated. The posterior capsule was stripped off the distal femur both medially and laterally. The posterior capsule along with the medial and lateral gutters were then injected with a standard mixture consisting of clonidine, epinephrine, Toradol, and Ropivacaine, unless any allergies were found preoperatively. The femoral component was then placed onto the distal femur in a slightly lateral position. This fit the femur well. A box cut was then made without difficulty. This was then removed. The tibial trial along with the polyethylene liner was then placed. The knee came easily into full extension and was stable to varus and valgus stressing both in full extension and flexion. Any additional releases were performed at this time. We then returned our attention to the patella. The patella was everted and towel clamps were used to hold the patella in position. It was resected to a 15 millimeter thickness. It was then sized to the appropriate size. It was prepared in the usual fashion after placing the predetermined size clamps. This was placed in a slightly superior and medial position. The clamp was then removed. The patellar trial button was placed. The knee was taken through a range of motion using the no-touch technique. The patella tracked centrally. A drop shiva was then placed to check alignment. All instruments were then removed from the knee. The tibial sizer was then placed on the tibia. The tibia was prepared in the usual fashion using the reamer and broach. This was then removed. All bony surfaces were copiously irrigated with Pulsavac solution. They were then suctioned dry. Cement was prepared on the back table in the usual manner. Once it was prepared, the bone ends were again suctioned dry. The tibia was cemented into place first. This was malleted into position. Excess cement was then cleared. The femur was then placed in a similar manner. We placed the polyethylene trial into place and the knee was brought into full extension. An axial load was placed while keeping the knee in full extension. The patella button was also cemented into position and the clamp was used to hold this in place as the cement was allowed to cure. The wound was again copiously irrigated with saline solution using a Pulsavac telecom sales consultant. Following this 1 g of tranexamic acid was applied to the wound topically. After we had adequate curing of the cement, the knee was again taken through a range of motion. The size of the polyethylene was then determined. The polyethylene trial was then removed. The tibial tray was suctioned to make sure there was no remaining soft tissue or cement. Excess cement was cleared from around the edges of the prosthesis as well. The tourniquet was then deflated. We were able to observe for any excess bleeding and none was noted. Electrocautery was used to maintain hemostasis. An additional gram of tranexamic acid was given IV. The retractors were again placed and the predetermined polyethylene was then placed. This was locked into position without difficulty. The knee was again taken through a range of motion with no change from the prior exam. The fascial layer was closed with Number One Vicryl. The subcutaneous tissues were closed with 2-0 Vicryl. The skin was closed with hayes. Xeroform gauze was placed over the wound and a bulky dressing was applied. The patient was then awakened from anesthesia and transferred back to the operating room cart. They were brought to the recovery room in stable condition. All needle and sponge counts were correct. BENNY THOMPSON /[id number] MTDD
[2018-03-11] MEDS: Ketorolac 30 MG/ML SDV IVPUSH SCH ×2 (14:11→19:01)
--- NOTE | 2018-03-11 15:24 | CR ---
EXAMINATION: Left knee HISTORY: Total knee arthroplasty COMPARISON: None TECHNIQUE: 2 views FINDINGS/IMPRESSION: Left total knee hardware is demonstrated in good position and alignment. Operative soft tissue changes are noted.
[2018-03-11] MEDS: ceFAZolin 2 GM in Premix Bag 1 BAG IV SCH (16:59)
[2018-03-11] MEDS: Ondansetron 4 MG/2 ML SDV IVPUSH PRN (17:04)
[2018-03-11] MEDS: oxyCODONE 5 MG Tab PO PRN ×2 (17:34→22:31)
[2018-03-12] MEDS: ceFAZolin 2 GM in Premix Bag 1 BAG IV SCH (00:24)
[2018-03-12] MEDS: Ketorolac 30 MG/ML SDV IVPUSH SCH (01:27)
[2018-03-12] MEDS: Acetaminophen 1,000 MG in Premix Bag 1 BAG IV SCH (01:30)
[2018-03-12] MEDS: oxyCODONE 5 MG Tab PO PRN ×2 (02:59→07:33)
[2018-03-12] MEDS ORDERED: Morphine 2 MG/ML Syringe IVPUSH PRN (06:00)
--- NOTE | 2018-03-12 08:13 | PCM48HPAN ---
Post Anesthesia Note - EVALUATION WITHIN 48HRS OF ANESTHETIC Vital Signs in Normal Range: Yes Patient Participated in Evaluation: Yes Respiratory Function Stable: Yes Airway Patent: Yes Cardiovascular Function Stable: Yes Hydration Status Stable: Yes Pain Control Satisfactory: Yes Nausea and Vomiting Control Satisfactory: Yes Mental Status Recovered: Yes Resp Rate: 18 - COMMENTS/OBSERVATIONS Free Text/Narrative:: The patient has no anesthetic related complaints at this time. Discharge to primary service.
--- NOTE | 2018-03-12 08:29 | PCM.SN ---
<Ely Jessica A - Last Filed: 03/12/18 08:22> - Free Text/Narrative Note: S: POD#1 Overall, pain tolerable, but reports restless night as wasn't able to get comfortable. Was up for supper last night. Tolerating po fluids/food well without N/V. Ambulated with PT yesterday. O: VSS/afebrile UO: 3550 General : alert/orientated. comfortable in bed. LLE : Polar care and SCDs on. surgical dressing dry and intact with minimal drainage. Once removed, surgical incision dry and intact. No erythema. at/ehl /gastroc 5/5, pp2+ Hg/Hct 11.3/35.4 A: POD#1 s/p Left TKA with revision to right knee post-operative anemia P: Voices desire to go home today as feels she will rest better there. Will have PT this morning. she has multiple steps at home and needs to be comfortable with steps with PT. IV dc'd. Solis dc'd. LIVESTOCK RANCH HAND dc'd. Rx for po analgesic with IV morphine prn breakthrough pain. ASA for DVT prophylaxis starts today. Surgical dressing removed. Large Aquacell applied. Will follow up Celeste this afternoon in regards to progression and desire for discharge. <Eri Dubose R - Last Filed: 03/12/18 19:24> - Free Text/Narrative Note: Patient seen and examined at 1330. Agree with above note. Patient ambulating with PT. Feels she would like to be stronger with better pain control before going home. Plan to keep an additional day for pain management and PT. States R knee manipulation is feeling better after surgery. Hgb stable. Plan to continue current pain management and ASA for DVT prophylaxis. nori
[2018-03-12] MEDS: Celecoxib 100 MG Cap PO SCH ×2 (09:17→20:45)
[2018-03-12] MEDS: Polyethylene Glycol 3350 Powder 17 GM Packet PO SCH (09:17)
[2018-03-12] MEDS: Famotidine 20 MG Tab PO SCH (09:17)
[2018-03-12] MEDS: Escitalopram 10 MG Tab PO SCH (09:17)
[2018-03-12] MEDS: Aspirin 325 MG Tab PO SCH ×2 (09:17→20:45)
[2018-03-12] MEDS: Acetaminophen/oxyCODONE 325-5 MG Tab PO PRN ×4 (09:18→22:59)
[2018-03-12] MEDS: Ondansetron 4 MG/2 ML SDV IVPUSH PRN (13:07)
[2018-03-12] MEDS ORDERED: LORazepam 2 MG/ML SDV IVPUSH PRN (19:43)
[2018-03-13] MEDS: Acetaminophen/oxyCODONE 325-5 MG Tab PO PRN ×3 (03:05→10:59)
[2018-03-13 09:10] VITALS: BP 133/67
[2018-03-13] MEDS: Polyethylene Glycol 3350 Powder 17 GM Packet PO SCH (09:11)
[2018-03-13] MEDS: Celecoxib 100 MG Cap PO SCH (09:12)
[2018-03-13] MEDS: Escitalopram 10 MG Tab PO SCH (09:12)
[2018-03-13] MEDS: Aspirin 325 MG Tab PO SCH (09:12)
[2018-03-13] MEDS: Famotidine 20 MG Tab PO SCH (09:12)
--- NOTE | 2018-03-13 10:25 | PCM.DCSUM1 ---
Discharge Summary - Hospital Course Free Text/Narrative:: PREOPERATIVE DIAGNOSIS: 1) Degenerative Joint Disease, LEFT knee, tricompartmental 2) Arthrofibrosis, RIGHT knee, s/p right total knee arthroplasty Celeste underwent 1) LEFT total kne arthroplasty using patient specific instrumentation and 2) RIGHT total knee arthroplasty manipulation by Dr. Gustavo Dubose on March 11, 2018. Surgery performed under general anesthesia. Tourniquet time 57 minutes. No known complications, and was transferred to PACU then to Med/Surg for post-op care. - Discharge Data Discharge Date: 03/13/18 Discharge Disposition: Home, Self-Care Condition: Good - Patient Summary/Data Operative Procedure(s) Performed: L TKA and R TKA manipulation Consults: Consultations 03/11/18 09:41 PT Evaluation and Treatment [CONS] Routine Hospital Course: POD#1, tolerating oral food/liquids without N/V and IV fluids and downing catheter d/c'd. Completed 24 hours of IV antibiotic coverage. Pain was treated with oral analgesics, but had a restful first night following surgery, with planned stay POD#1 for continued PT and pain control. ASA 325mg BID started for DVT prophylaxis with continued use of compression stockings and SCDs. VSS/afebrile. Surgical dressing removed and large AquaCell applied POD#2, continuing to do well and feels ready for discharge after she has PT for education on walking steps. Slept better last night. VSS/afebrile. No N/V. voiding well. Ambulated with PT yesterday out to nurses station. Pain manageable with Percocet every 4 hours. AquaCell dressing intact with minimal discharge and no surrounding erythema. Hg/Hct stable at 11.3/35.4 both POD#1 and POD#2. - Patient Instructions Other/Special Instructions: Refer to Dr. Dubose's Postoperative instruction/ information sheep for Total Knee Arthroplasty - Discharge Plan Prescriptions/Med Rec: Acetaminophen/oxyCODONE [Percocet 325-5 MG] 1 - 2 tab PO Q4H PRN #60 tablet PRN Reason: Pain Aspirin 325 mg PO BID #60 tablet Celecoxib [CeleBREX] 200 mg PO DAILY #30 cap Docusate Sodium [Colace] 100 mg PO BID PRN #60 cap PRN Reason: Constipation Polyethylene Glycol 3350 [MiraLAX] 17 gm PO DAILY #600 gm Home Medications: Home Meds Escitalopram Oxalate 20 mg PO DAILY 02/10/16 [History] Furosemide 20 mg PO DAILY PRN 02/10/16 [History] Omeprazole 20 mg PO DAILY 03/06/18 [History] Acetaminophen/oxyCODONE [Percocet 325-5 MG] 1 - 2 tab PO Q4H PRN #60 tablet 11/21 [Rx] Aspirin 325 mg PO BID #60 tablet 03/13/18 [Rx] Celecoxib [CeleBREX] 200 mg PO DAILY #30 cap 03/13/18 [Rx] Docusate Sodium [Colace] 100 mg PO BID PRN #60 cap 03/13/18 [Rx] Polyethylene Glycol 3350 [MiraLAX] 17 gm PO DAILY #600 gm 03/13/18 [Rx] Patient Handouts: Acetaminophen; Oxycodone tablets, Celecoxib capsules, Total Knee Replacement, Care After, [id number], Aspirin, ASA oral tablets, Docusate capsules, Polyethylene Glycol powder Referrals: Eri Dubose MD [Physician] - 04/18/18 10:00 am Ely Jessica NP [Primary Care Provider] - 03/22/18 10:00 am - Discharge Summary/Plan Comment DC Time >30 min.: No - General Info Date of Service: 03/13/18 (POD#2) Admission Dx/Problem (Free Text: S/P LEFT TKA AND MANIPULATION RIGHT KNEE Functional Status: Reports: Pain Controlled - Review of Systems General: Reports: No Symptoms HEENT: Reports: No Symptoms Pulmonary: Reports: No Symptoms Cardiovascular: Reports: No Symptoms Gastrointestinal: Reports: No Symptoms Genitourinary: Reports: No Symptoms Musculoskeletal: Reports: Joint Pain (left knee pain s/p Lt TKA) Neurological: Reports: No Symptoms - Patient Data Vitals - Most Recent: Last Vital Signs Temp 36.3 C 03/13/18 09:09 Pulse 72 03/13/18 09:09 Resp 18 03/13/18 09:09 BP 133/67 03/13/18 09:09 Pulse Ox 94 L 03/13/18 09:09 Weight - Most Recent: 113.398 kg I&O - Last 24 hours: Intake & Output 03/12/18 03/13/18 03/13/18 22:59 06:59 14:59 Intake Total 1800 1000 Output Total 1000 800 Balance 800 200 Lab Results - Last 24 hrs: Laboratory Results - last 24 hr 03/13/18 Range/Units 05:35 Hgb 11.3 L (12.0-16.0) g/dL Hct 35.4 L (36.0-46.0) % Med Orders - Current: Current Medications Al Hydroxide/Mg Hydroxide (Mag-Al Plus) 30 ml PO Q4H PRN PRN Reason: Indigestion Aspirin (Aspirin) 325 mg PO BID [facility] Last Admin: 03/13/18 09:12 Dose: 325 mg Bisacodyl (Dulcolax) 10 mg RECTAL DAILY PRN PRN Reason: Constipation Celecoxib (Celebrex) 200 mg PO BID [facility] Last Admin: 03/13/18 09:12 Dose: 200 mg Diphenhydramine HCl (Benadryl) 12.5 - 25 mg PO Q6H PRN PRN Reason: Itching Docusate Sodium (Colace) 100 mg PO BID PRN PRN Reason: Constipation Escitalopram Oxalate (Lexapro) 20 mg PO DAILY [facility] Last Admin: 03/13/18 09:12 Dose: 20 mg Famotidine (Pepcid) 40 mg IVPUSH ONARRIVE [facility] Last Admin: 03/11/18 07:02 Dose: 40 mg Famotidine (Pepcid) 40 mg PO DAILY [facility] Last Admin: 03/13/18 09:12 Dose: 40 mg Fentanyl (Sublimaze) 50 mcg IVPUSH .Q5MIN PRN PRN Reason: Pain Hydromorphone HCl (Dilaudid) 0.5 mg IVPUSH .Q10MIN PRN PRN Reason: Pain Last Admin: 03/11/18 10:39 Dose: 0.5 mg Acetaminophen 1,000 mg/ Premix 100 mls @ 400 mls/hr IV ONARRIVE [facility] Last Admin: 03/11/18 10:38 Dose: 400 mls/hr Cefazolin Sodium/Dextrose 2 gm (/ Premix) 50 mls @ 100 mls/hr IV ONCALL [facility] Ropivacaine 49.25 ml/Ketorolac Tromethamine 30 mg/Epinephrine HCl 0.5 mg/ Clonidine HCl 80 mcg/ Sodium Chloride 100 mls @ 50 mls/sec INJECT ASDIRECTED [facility] Lactated Ringer's (Ringers, Lactated) 1,000 mls @ 100 mls/hr IV ASDIRECTED [facility] Last Admin: 03/11/18 22:48 Dose: 100 mls/hr Ketorolac Tromethamine (Toradol) 30 mg IVPUSH ONARRIVE [facility] Last Admin: 03/11/18 07:04 Dose: 30 mg Lorazepam (Ativan) 1 mg IVPUSH BEDTIME PRN PRN Reason: Anxiety Morphine Sulfate (Morphine) 1 - 3 mg IVPUSH Q3H PRN PRN Reason: Pain Ondansetron HCl (Zofran) 4 mg IVPUSH Q6H PRN PRN Reason: Nausea/Vomiting Last Admin: 03/12/18 13:07 Dose: 4 mg Oxycodone/Acetaminophen (Percocet 325-5 Mg) 1 - 2 tab PO Q4H PRN PRN Reason: Pain Last Admin: 03/13/18 07:41 Dose: 2 tab Polyethylene Glycol (Miralax) 17 gm PO DAILY [facility] Last Admin: 03/13/18 09:11 Dose: Not Given Scopolamine (Transderm-Scop) 1.5 mg TRDERM ONARRIVE [facility] Last Admin: 03/11/18 06:59 Dose: 1.5 mg Sodium Chloride (Saline Flush) 10 ml FLUSH ASDIRECTED PRN PRN Reason: Keep Vein Open Sodium Chloride (Saline Flush) 2.5 ml FLUSH ASDIRECTED PRN PRN Reason: Keep Vein Open Discontinued Medications Cefazolin Sodium (Ancef) Confirm Administered Dose 2 gm .ROUTE .STK-MED ONE Stop: 03/11/18 10:34 Cefazolin Sodium/Dextrose (Ancef) Confirm Administered Dose 2 gm IV .STK-MED ONE Stop: 03/11/18 07:31 Dexamethasone (Dexamethasone) Confirm Administered Dose 20 mg .ROUTE .STK-MED ONE Stop: 03/11/18 08:24 Fentanyl (Sublimaze) Confirm Administered Dose 250 mcg .ROUTE .STK-MED ONE Stop: 03/11/18 07:17 Fentanyl (Sublimaze) Confirm Administered Dose 250 mcg .ROUTE .STK-MED ONE Stop: 03/11/18 08:53 Hydromorphone HCl (Dilaudid) Confirm Administered Dose 2 mg .ROUTE .STK-MED ONE Stop: 03/11/18 08:23 Tranexamic Acid 4,000 mg/ (Sodium Chloride) 140 mls @ 600 mls/hr IV ASDIRECTED ONE Stop: 03/11/18 08:13 Last Admin: 03/11/18 14:05 Dose: Not Given Acetaminophen 1,000 mg/ Premix 100 mls @ 400 mls/hr IV Q6H [facility] Stop: 03/12/18 02:14 Last Admin: 03/12/18 01:30 Dose: 400 mls/hr Cefazolin Sodium/Dextrose 2 gm (/ Premix) 50 mls @ 100 mls/hr IV Q8H [facility] Stop: 03/12/18 00:29 Last Admin: 03/12/18 00:24 Dose: 100 mls/hr Acetaminophen (Ofirmev) Confirm Administered Dose 100 mls @ as directed IV .STK- MED ONE Stop: 03/11/18 10:37 Ketorolac Tromethamine (Toradol) 30 mg IVPUSH Q6H [facility] Stop: 03/12/18 05:00 Last Admin: 03/12/18 01:27 Dose: 30 mg Lidocaine (Xylocaine-Mpf 2%) Confirm Administered Dose 5 ml .ROUTE .STK-MED ONE Stop: 03/11/18 07:17 Midazolam HCl (Versed 1 Mg/Ml) Confirm Administered Dose 2 mg .ROUTE .STK-MED ONE Stop: 03/11/18 07:17 Morphine Sulfate (Morphine [employer] 30 Mg In 30 Ml) 30 mg IV ASDIRECTED PRN; Protocol PRN Reason: Pain Stop: 03/12/18 06:00 Last Admin: 03/11/18 10:42 Dose: 30 mg Ondansetron HCl (Zofran) Confirm Administered Dose 4 mg .ROUTE .STK-MED ONE Stop: 03/11/18 07:17 Oxycodone HCl (Oxycodone) 5 - 10 mg PO Q4H PRN PRN Reason: Pain Stop: 03/12/18 08:00 Last Admin: 03/12/18 07:33 Dose: 10 mg Propofol (Diprivan 20 Ml) Confirm Administered Dose 200 mg .ROUTE .STK-MED ONE Stop: 03/11/18 07:17 Rocuronium Christiana (Zemuron) Confirm Administered Dose 100 mg .ROUTE .STK-MED ONE Stop: 03/11/18 07:17 Tranexamic Acid (Cyklokapron) Confirm Administered Dose 2,000 mg .ROUTE .STK- MED ONE Stop: 03/11/18 07:35 Tranexamic Acid (Cyklokapron) Confirm Administered Dose 2,000 mg .ROUTE .STK- MED ONE Stop: 03/11/18 07:37 - Exam General: Reports: Alert, Oriented, No Acute Distress HEENT: Reports: Mucous Membr. Moist/[place] Lungs: Reports: Normal Respiratory Effort Cardiovascular: Reports: Regular Rate GI/Abdominal Exam: Soft Extremities: Other (LLE : AquaCell bandage intact to left knee with mild drainage (2cm size). No surrounding erythema. AT/EHL/Gastroc / PP2+) Skin: Reports: Warm, Dry Wound/Incisions: Reports: Dressing Dry and Intact Neurological: Reports: Normal Speech, Normal Tone Psy/Mental Status: Reports: Alert, Normal Affect, Normal Mood Discharge Operative/Procedures - Procedures Performed Operations: LEFT TKA & RIGHT TKA MANIPULATION S/P RIGHT TKA
== END 2018-03-13 10:50 | disposition home or self-care (01) | DRG 470 ==
LOC: MW.SDS 06:16 → MW.MS 11:49
PROVIDERS: ADMIT Orthopaedic Surgery; ATTEND Orthopaedic Surgery
PROC: 0SWCXJZ Revision of Synthetic Substitute in Right Knee Joint, External Approach (ICD-10-PCS; principal; 2018-03-11)
PROC: 0SRD0J9 Replacement of Left Knee Joint with Synthetic Substitute, Cemented, Open Approach (ICD-10-PCS; 2018-03-11)
DX: M17.12 Unilateral primary osteoarthritis, left knee (principal); M24.661 Ankylosis, right knee; M94.262 Chondromalacia, left knee; M25.762 Osteophyte, left knee; F41.9 Anxiety disorder, unspecified; F32.9 Major depressive disorder, single episode, unspecified; K21.9 Gastro-esophageal reflux disease without esophagitis; I10 Essential (primary) hypertension; Z79.899 Other long term (current) drug therapy
CPT/HCPCS: 36415; 73560-26-LT; 73560-LT; 81025; 85014; 85018; 86850; 86900; 86901; 88305; 88311; 97110-GP; 97162-GP; 97530-GP; A9270-GY; C1713; C1776; J0131; J0690; J1100; J1170; J1885; J2250; J2274; J2405; J2704; J3010; J3490; J7120

== ENCOUNTER 2020-10-21 11:11 | Emergency (ER) | payer OTHER ==
--- NOTE | 2020-10-21 14:39 | EDM.PDOC ---
ED HPI GENERAL MEDICAL PROBLEM - General Chief Complaint: General Stated Complaint: PT BELIEVES SHE IS HAVING A FLARE UP Time Seen by Provider: 10/21/20 14:15 - History of Present Illness INITIAL COMMENTS - FREE TEXT/NARRATIVE: HISTORY AND PHYSICAL: History of present illness: Patient is a 55-year-old female who presents to the emergency room with complaints of knee, shoulder pain bilaterally. Patient states she has been diag nosed with rheumatoid arthritis. She states she has taken herself off of her medications for her RA and believes she is having a flareup. She denies any injury, trauma or falls. She denies any skin warmth or redness. Patient denies any fever, chills, headache, change in vision, syncope or near syncope. Denies any chest pain, back pain, shortness of breath or cough. Denies any abdominal pain, nausea, vomiting, diarrhea, constipation or dysuria. Has not noted any blood in urine or stool. Patient has been eating and drinking appropriately. Review of systems: As per history of present illness and below otherwise all systems reviewed and negative. Past medical history: As per history of present illness and as reviewed below otherwise noncontributory. Surgical history: As per history of present illness and as reviewed below otherwise noncontributory. Social history: See social history for further information Family history: As per history of present illness and as reviewed below otherwise noncontributory. Physical exam: General: Well developed and well nourished 55-year-old female. Alert and orientated x 3. Nontoxic in appearance and in no acute distress. Vital signs are stable and have been reviewed by me. Nursing notes were reviewed. HEENT: Atraumatic, normocephalic, pupils equal and reactive bilaterally, negative for conjunctival pallor or scleral icterus, mucous membranes moist, trachea midline. No drooling or trismus noted. No meningeal signs. No hot potato voice noted. Lungs: Clear to auscultation bilaterally. No wheezes, rales, or rhonchi. Chest nontender. Normal work of breathing, no accessory muscles used. Heart: S1S2, regular rate and rhythm without overt murmur, gallops, or rubs. No JVD. No peripheral edema Abdomen: Soft, nondistended, nontender. Normoactive bowel sounds. Negative for masses or costovertebral tenderness. Pelvis: Stable nontender. Skin: Intact, warm, dry. No lesions or rashes noted. Hematologic: No petechiae or purpra. Mucosa appropriate color and normal nail bed color and refill. Extremities: Atraumatic, moves all extremities per self without difficulty or deficits, negative for cords or calf pain. Strong distal pulses bilaterally. Neurovascular unremarkable. Neuro: Awake, alert, oriented. Cranial nerves II through XII unremarkable. Cerebellum unremarkable. Motor and sensory unremarkable throughout. Exam nonfocal. Psychiatric: Mood and affect are appropriate. Normal thought process. Answering questions appropriately. Notes: *This patient was seen and evaluated during the 2019 SARS-CoV-2 novel coronavirus pandemic period. Community viral transmission is ongoing at time of this encounter and the emergency department is operating under pandemic response procedures. Patient's declined wanting any diagnostics. She states she does plan on following up with her primary care provider to resume her RA treatment. I have talked with the patient about today's findings, in addition to providing specific details for plan of care. Reassessment at the time of disposition demonstrates that the patient is in no acute distress. The patient is stable for discharge, counseling was provided and we discussed in great detail signs and symptoms that would prompt them to return to the Emergency Department. Medication, follow up and supportive care measures were reviewed and discussed. Voices understanding and is agreeable to plan of care. Denies any further questions or concerns at this time. Diagnostics: None Therapeutics: None Prescription: Ultram, prednisone Impression: RA flare Plan: 1. You were evaluated today on an emergent basis. Take the medications as prescribed 2. You can alternate Tylenol and ibuprofen as needed for pain and fever management. 3. We encourage you to follow up with your primary care provider and/or recommended specialist in the next few days for re-evaluation and further care/management. 4. If your symptoms should worsen, new symptoms develop or any of the signs and symptoms we discussed should arise please return to the emergency room or call 911 (if needed). Definitive disposition and diagnosis as appropriate pending reevaluation and review of above. right hand, bilateral knees, right foot Pain Score (Numeric/FACES): 8 - Related Data Allergies Allergy/AdvReac Type Severity Reaction Status Date / Time No Known Allergies Allergy Verified 10/21/20 14:11 Home Meds: Home Meds predniSONE [Prednisone] 40 mg PO DAILY 5 Days #10 tablet 10/21/20 [Rx] traMADol [Ultram] 50 mg PO Q4H PRN #20 tab 10/21/20 [Rx] Past Medical History HEENT History: Reports: Allergic Rhinitis Cardiovascular History: Reports: Hypertension Respiratory History: Reports: None Other Respiratory History: states was prescribed inhaler "months ago" when she had a cold, denies any lung problems Gastrointestinal History: Reports: GERD, Other (See Below) Other Gastrointestinal History: occasional heartburn Genitourinary History: Reports: Renal Calculus [employer] History: Reports: Musculoskeletal History: Reports: Osteoarthritis, Osteoporosis, RA Neurological History: Reports: None Psychiatric History: Reports: Anxiety, Depression Endocrine/Metabolic History: Reports: Obesity/BMI 30+ Hematologic History: Reports: None Immunologic History: Reports: None Oncologic (Cancer) History: Reports: None Dermatologic History: Reports: None - Infectious Disease History Infectious Disease History: Reports: Chicken Pox, Mumps - Past Surgical History Head Surgeries/Procedures: Reports: None HEENT Surgical History: Reports: Tonsillectomy Female Surgical History: Reports: Tubal Ligation Musculoskeletal Surgical History: Reports: Arthroscopic Knee, Knee Replacement Other Musculoskeletal Surgeries/Procedures:: Right TKA 06/20 and left TKA 03/11/18 Social & Family History - Family History Family Medical History: No Pertinent Family History Other Dermatologic Family History: adopted - Tobacco Use Tobacco Use Status *Q: Current Every Day Tobacco User Years of Tobacco use: 20 Packs/Tins Daily: 0.5 - Caffeine Use Caffeine Use: Reports: Soda - Recreational Drug Use Recreational Drug Use: No ED ROS GENERAL - Review of Systems Review Of Systems: Comprehensive ROS is negative, except as noted in HPI. ED EXAM, GENERAL - Physical Exam Exam: See Below (See dictation) Course - Vital Signs Last Recorded V/S: Last Vital Signs Temp 96.2 F L 10/21/20 14:09 Pulse 93 10/21/20 14:57 Resp 18 10/21/20 14:57 BP 118/91 H 10/21/20 14:57 Pulse Ox 97 10/21/20 14:57 Departure - Departure Time of Disposition: 14:34 Disposition: Home, Self-Care 01 Clinical Impression: Rheumatoid arthritis flare - Discharge Information Prescriptions: predniSONE [Prednisone] 40 mg PO DAILY 5 Days #10 tablet traMADol [Ultram] 50 mg PO Q4H PRN #20 tab PRN Reason: Pain Instructions: Rheumatoid Arthritis, [id number] Referrals: Na Jackson MD [Primary Care Provider] - Forms: ED Department Discharge Additional Instructions: The following information is given to patients seen in the emergency department who are being discharged to home. This information is to outline your options for follow-up care. We provide all patients seen in our emergency department w ith a follow-up referral. The need for follow-up, as well as the timing and circumstances, are variable depending upon the specifics of your emergency department visit. If you don't have a primary care physician on staff, we will provide you with a referral. We always advise you to contact your personal physician following an emergency department visit to inform them of the circumstance of the visit and for follow-up with them and/or the need for any referrals to a consulting specialist. The emergency department will also refer you to a specialist when appropriate. This referral assures that you have the opportunity for follow-up care with a specialist. All of these measure are taken in an effort to provide you with optimal care, which includes your follow-up. Under all circumstances we always encourage you to contact your private physician who remains a resource for coordinating your care. When calling for follow-up care, please make the office aware that this follow-up is from your recent emergency room visit. If for any reason you are refused follow-up, please contact the [facility] Emergency Department at and asked to speak to the emergency department charge nurse. [facility] [address] [place] [address] [id number] [address] [id number] Thank you for choosing the [facility] emergency department in [facility] for your medical needs today. It was a pleasure caring for you. Today you were seen in the emergency department for RA flare. 1. You were evaluated today on an emergent basis. Take the medications as prescribed 2. You can alternate Tylenol and ibuprofen as needed for pain and fever management. 3. We encourage you to follow up with your primary care provider and/or recommended specialist in the next few days for re-evaluation and further care/management. 4. If your symptoms should worsen, new symptoms develop or any of the signs and symptoms we discussed should arise please return to the emergency room or call 911 (if needed). Sepsis Event Note (ED) - Evaluation Sepsis Screening Result: No Definite Risk - Focused Exam Vital Signs: Vital Signs Temp Pulse Resp BP Pulse Ox 10/21/20 14:57 93 18 118/91 H 97 10/21/20 14:09 96.2 F L 104 H 16 141/92 H 97
[2020-10-21 14:58] VITALS: BP 118/91; PULSE 93
== END 2020-10-21 14:47 | disposition home or self-care (01) ==
LOC: MW.ED 11:11
DX: M06.80 Other specified rheumatoid arthritis, unspecified site (principal); I10 Essential (primary) hypertension; E66.9 Obesity, unspecified; Z72.0 Tobacco use; Z68.28 Body mass index [BMI] 28.0-28.9, adult
CPT/HCPCS: 99283